=== PATIENT | female | born 1955 | race Caucasian/White ===

== ENCOUNTER 2018-03-18 13:07 | Outpatient (REF) | payer OTHER, SELFPAY ==
[2018-03-18 21:44] LABS: Anion Gap 5.2 mmol/L (3-11); BUN 14 mg/dL (7-18); CO2 30.8 mmol/L (21.0-32.0); CREATININE 0.74 mg/dL (0.55-1.02); Calcium 8.8 mg/dL (8.5-10.1); Chloride 104 mmol/L (98-107); Cholesterol 232 mg/dL (50-200); Glucose 85 mg/dL (70-100); HDL Cholesterol 83 mg/dL (40-60); LDL CHOLESTEROL 127 mg/dL (<100); Potassium 4.4 mmol/L (3.5-5.1); Sodium 140 mmol/L (136-145); Triglyceride 86 mg/dL (30-150)
== END 2018-03-18 13:27 ==
LOC: NCHCN 13:07
PROVIDERS: PCP Nurse Practitioner Family; Visit Provider Nurse Practitioner Family
DX: I10 Essential (primary) hypertension (principal); M54.5 Low back pain; L98.9 Disorder of the skin and subcutaneous tissue, unspecified; K30 Functional dyspepsia; I34.1 Nonrheumatic mitral (valve) prolapse; J45.30 Mild persistent asthma, uncomplicated; F32.9 Major depressive disorder, single episode, unspecified
CPT/HCPCS: 80048; 80061; 83721

== ENCOUNTER 2018-04-05 12:20 | Outpatient (REF) | payer OTHER, SELFPAY ==
[2018-04-05 20:59] LABS: Anion Gap 5.4 mmol/L (3-11); BUN 14 mg/dL (7-18); CO2 28.6 mmol/L (21.0-32.0); CREATININE 0.83 mg/dL (0.55-1.02); Calcium 8.6 mg/dL (8.5-10.1); Chloride 106 mmol/L (98-107); Glucose 97 mg/dL (70-100); Potassium 4.4 mmol/L (3.5-5.1); Sodium 140 mmol/L (136-145)
== END 2018-04-05 12:40 ==
LOC: NCHCN 12:20
PROVIDERS: PCP Nurse Practitioner Family; Visit Provider Nurse Practitioner Family
DX: I10 Essential (primary) hypertension (principal)
CPT/HCPCS: 80048

== ENCOUNTER 2018-04-12 01:28 | Outpatient (CLI) | payer OTHER, SELFPAY ==
--- NOTE | 2018-04-12 15:46 | DI.MAMMO_ITS ---
SYMPTOM/DIAGNOSIS: SCREENING, Z12.31, FAMILY H/O BREAST CA, Z80.3 MAMMOGRAMS: Mammograms were interpreted according to the usual protocol including computer analysis with CAD system, tomosynthesis and C view imaging. Comparison is made with prior examinations. Breast density, Category C. No suspicious masses or microcalcifications are seen. There is no definite evidence of malignancy. IMPRESSION: Negative mammogram. Routine screening is recommended. Category 1. MQSA ASSESSMENT OF FINDINGS: Negative. Category 1. Patient will receive a letter notifying them of these results. Bi-RADS category C. The breasts are heterogeneously dense, which may obscure small masses.
== END 2018-04-12 01:48 ==
PROVIDERS: PCP Nurse Practitioner Family; Visit Provider Nurse Practitioner Family
DX: Z12.31 Encounter for screening mammogram for malignant neoplasm of breast (principal); Z80.3 Family history of malignant neoplasm of breast
CPT/HCPCS: 77063; 77067

== ENCOUNTER 2019-03-03 11:47 | Outpatient (REF) | payer MEDICARE, SELFPAY ==
--- NOTE | 2019-03-03 10:15 | PAPFT_PTH ---
PATIENT: Tanvi Petersen LOC: [facility]#:[id number] AGE/SX: 64/F ROOM: RE03/03/[address]: Sarah Bailon : 1955 BED: DIS: 03/03/2019 SPEC #: [id number] RECD: 03/04/19 12:50 STATUS: MICK MENDEZ #: [id number] JIMENA: 03/03/19 10:[address]: Sarah Bailon DEPT: [facility] Cytology RECD BY: Lorenza Suarez Tissues: 1 - CX/ENDOCX FOR PAP SMEARS Procedures: PAP THIN PREP/UVM Screening HPV DNA PROBE Comments: [id number]
[2019-03-03 21:40] LABS: ALT 13 U/L (14-59); AST 14 U/L (15-37); Albumin 3.5 g/dL (3.4-5.0); Alkaline Phosphatase 90 U/L (46-116); Anion Gap 6.3 mmol/L (3-11); BUN 16 mg/dL (7-18); Bilirubin, Total 0.4 mg/dL (0.2-1.0); CO2 29.7 mmol/L (21.0-32.0); CREATININE 0.75 mg/dL (0.55-1.02); Calcium 8.4 mg/dL (8.5-10.1); Calculated LDL 105 mg/dL; Chloride 107 mmol/L (98-107); Cholesterol 194 mg/dL (<200); Glucose 88 mg/dL (74-106); HDL Cholesterol 69 mg/dL (40-60); Potassium 4.2 mmol/L (3.5-5.1); Sodium 143 mmol/L (136-145); Total Protein 6.4 g/dL (6.4-8.2); Triglyceride 103 mg/dL (<150)
== END 2019-03-03 12:07 ==
LOC: NCHCN 11:47
PROVIDERS: PCP Nurse Practitioner Family; Visit Provider Nurse Practitioner Family
DX: I10 Essential (primary) hypertension (principal); F32.9 Major depressive disorder, single episode, unspecified; J45.30 Mild persistent asthma, uncomplicated; Z12.4 Encounter for screening for malignant neoplasm of cervix; Z01.419 Encounter for gynecological examination (general) (routine) without abnormal findings
CPT/HCPCS: 80053; 80061; 88142; 87624

== ENCOUNTER 2019-04-29 02:05 | Outpatient (CLI) | payer MEDICARE, SELFPAY ==
--- NOTE | 2019-04-29 | DI.DEXA_ITS ---
EXAM: XR DEXA BONE DENSITY W/WO SUNIL CLINICAL HISTORY: POSTMENOPAUSAL Z78.0 COMPARISON: ABD FLAT UPRIGHT PA CHEST from 01/02/2013 FINDINGS: On the lateral view there is a compression deformity of the T12 vertebral body. There is mild loss o f the height of the vertebral body noted. Evaluation of the left hip shows a total T-score is -2.2 and a Z-score of -0.9. This is consistent w ith osteopenia and increased fracture risk. Evaluation of the lumbar spine shows a total T-score of -2.7 and a Z-score of -1.0. This is consiste nt with osteoporosis and high fracture risk. IMPRESSION: Findings of osteoporosis in the lumbar spine.
--- NOTE | 2019-04-29 15:42 | DI.MAMMO_ITS ---
EXAM: MAMMO SCREENING CLINICAL HISTORY: SCREENING Z12.31, FAM HX BREAST CANCER Z80.3 TECHNIQUE: Mammograms were interpreted according to the usual protocol including computer analysis w [employer] CAD system, tomosynthesis and C-view imaging. COMPARISON: 2010 through 2018 FINDINGS: The breasts are composed of heterogeneously dense fibroglandular densities, Breast Density category C . No suspicious masses or suspicious microcalcifications are seen. No skin thickening or abnormal axillary lymph nodes are seen. There has been no significant change from prior exams. IMPRESSION: BIRADS Category 1, negative mammogram. Yearly screening mammography is recommended. BREAST DENSITY: The mammogram demonstrates the patient's breast tissue is dense. Dense breast tissue is very common and is not abnormal but dense breast tissue can make it harder to find cancer on a ma mmogram. Also, dense breast tissue may increase breast cancer risk. This information about the result of the mammogram report was provided to the patient to raise their awareness. Use this report when y ou speak with the patient about their risks for breast cancer, which includes their family history. A t that time, you may recommend additional screening tests (Ultrasound or MRI) as they might be useful based on their risk. A negative radiographic report should not delay biopsy if a dominant or clinically suspicious mass is present. Up to ten percent of cancers are not identified on mammography. A negative report may reinforce clinical impression. Adenosis and dense breasts may obscure an underlying neoplasm. False positive reports average 6 to 10%.
== END 2019-04-29 02:25 ==
PROVIDERS: PCP Nurse Practitioner Family; Visit Provider Nurse Practitioner Family
DX: Z12.31 Encounter for screening mammogram for malignant neoplasm of breast (principal); Z80.3 Family history of malignant neoplasm of breast; M81.0 Age-related osteoporosis without current pathological fracture; Z78.0 Asymptomatic menopausal state
CPT/HCPCS: 77063; 77067; 77080

== ENCOUNTER 2020-06-28 01:17 | Outpatient (CLI) | payer MEDICARE, SELFPAY ==
--- NOTE | 2020-06-28 | DI.MAMMO_ITS ---
Exam(s) MAMMO SCREENING EXAM: MAMMO SCREENING CLINICAL HISTORY: SCREENING,12.31, FAMILY H/O BREAST CA,Z80.3 TECHNIQUE: Bilateral full field digital CC and MLO mammographic images were obtained with 3D tomosyn thesis and utilizing computer aided detection (CAD). COMPARISON: Available for comparison. FINDINGS: Masses/Architectural Distortion: None seen. Microcalcifications: No suspicious pleomorphic-type are seen. Skin Thickening/Nipple Retraction: None. IMPRESSION: 1. No significant interval change with no specific features of malignancy noted. 2. Unless there is more urgent need, screening mammography is recommended, as per [employer] guidelines. BI-RADS Category 1 - Negative Breast Density - Category C - Heterogeneously dense Breast density category C or D implies that the patient has dense breast tissue. Dense breast tissue is very common and is not abnormal but dense breast tissue can make it harder to find cancer on a ma mmogram. Also, dense breast tissue may increase their breast cancer risk. This information about the result of the mammogram report was provided to the patient to raise their awareness. Use this report when you speak with the patient about their risks for breast cancer, which includes their family hist ory. At that time, you may recommend for more screening tests (Ultrasound or MRI) as they might be us eful based on their risk. A negative radiographic report should not delay biopsy if a dominant or clinically suspicious mass is present. Up to ten percent of cancers are not identified on mammography. A negative report may reinforce clinical impression. Adenosis and dense breasts may obscure an underlying neoplasm. False positive reports average 6 to 10%. Patient will receive a letter notifying them of these results.
== END 2020-06-28 01:37 ==
PROVIDERS: PCP Nurse Practitioner Family; Visit Provider Nurse Practitioner Family
DX: Z12.31 Encounter for screening mammogram for malignant neoplasm of breast (principal); Z80.3 Family history of malignant neoplasm of breast
CPT/HCPCS: 77063; 77067

== ENCOUNTER → 2020-12-02 08:59 | Outpatient (BNVA) | payer MEDICARE, SELFPAY | PROVIDERS: PCP Nurse Practitioner Family; Referring Provider Nurse Practitioner Family; Visit Provider Physical Therapy Assistant | DX: Z12.11 Encounter for screening for malignant neoplasm of colon (principal) ==

== ENCOUNTER 2021-06-13 13:39 | Outpatient (REF) | payer MEDICARE, SELFPAY ==
[2021-06-13 16:56] LABS: Anion Gap 6.8 mmol/L (3-11); BUN 13 mg/dL (7-18); CO2 27.2 mmol/L (21.0-32.0); CREATININE 0.8 mg/dL (0.55-1.02); Calcium 8.7 mg/dL (8.5-10.1); Calculated LDL 98 mg/dL (<100); Chloride 108 mmol/L (98-107); Cholesterol 204 mg/dL (<200); Glucose 123 mg/dL (74-106); HDL Cholesterol 77 mg/dL (40-60); Potassium 4.5 mmol/L (3.5-5.1); Sodium 142 mmol/L (136-145); Triglyceride 148 mg/dL (<150)
== END 2021-06-13 13:40 | disposition home or self-care (01) ==
LOC: NCHCN 13:39
PROVIDERS: PCP Nurse Practitioner Family; Visit Provider Nurse Practitioner Family
DX: I10 Essential (primary) hypertension (principal); F32.9 Major depressive disorder, single episode, unspecified; K30 Functional dyspepsia
CPT/HCPCS: 80048; 80061

== ENCOUNTER → 2021-07-26 01:34 | Outpatient (CLI) | payer MEDICARE, SELFPAY ==
--- NOTE | 2021-07-26 12:15 | DI.MAMMO_ITS ---
Exam(s) MAMMO SCREENING EXAM: MAMMO SCREENING CLINICAL HISTORY: SCREENING, Z12.31; FAMILY H/O BREAST CA, Z80.3. TECHNIQUE: Bilateral full field digital CC and MLO mammographic images were obtained with 3D tomosyn thesis and utilizing computer aided detection (CAD). COMPARISON: Prior mammograms were reviewed, the most recent being June 2020. FINDINGS: The fibroglandular tissue pattern is again noted be moderately dense, this somewhat decreasing the se nsitivity mammogram for finding hidden underlying lesions. There are no new significant radiograph findings in the right breast. In the left breast on 3D MLO imaging there is an asymmetric density measuring 6 by 4 millimeters loca dot 5 cm in from the nipple, more evident on prior mammograms. Require spot compression view. There are no malignant-appearing microcalcification groups is region or elsewhere in either breast. There is no significant architectural distortion nor skin thickening-retraction. IMPRESSION: Moderately dense fibroglandular tissue. No radiographic evidence of malignancy in the right breast. Left breast asymmetric density-possible nodule. Spot compression MLO view and ultrasound recommended BI-RADS Category 0 - Assessment Incomplete: Need additional imaging evaluation Breast Density - Category C - Heterogeneously dense Breast density Category C or D implies that the patient has dense breast tissue. Dense breast tissue can make it harder to find cancer on a mammogram. Dense breast tissue is also associated with an incr eased risk of breast cancer. This information about the result of the mammogram report was provided to the patient to raise their awareness. Use this report when you speak with the patient about their risks for breast cancer, which includes their family history. At that time, you may recommend additional screening tests (Ultrasoun d or MRI) as these tests may add significant information. A negative radiographic report should not delay biopsy if a dominant or clinically suspicious mass is present. Up to ten percent of cancers are not identified on mammography. A negative report may reinforce clinical impression. Adenosis and dense breasts may obscure an underlying neoplasm. False positive reports average 6 to 10%. Patient will receive a letter notifying them of these results.
== END ==
PROVIDERS: PCP Nurse Practitioner Family; Visit Provider Nurse Practitioner Family
DX: Z12.31 Encounter for screening mammogram for malignant neoplasm of breast (principal); R92.8 Other abnormal and inconclusive findings on diagnostic imaging of breast; Z80.3 Family history of malignant neoplasm of breast
CPT/HCPCS: 77063; 77067

== ENCOUNTER → 2021-08-01 00:40 | Outpatient (CLI) | payer MEDICARE, SELFPAY ==
--- NOTE | 2021-08-01 09:00 | ETT_ITS ---
APPROVED REPORT Exam: Exercise Treadmill Patient Location: Out-Patient Room/Bed: Stress Nurse: Cyndie Little RN Ordering Provider:PRICILLA PURCELL, Contact Number: [phone] BMI: 21.03 Baseline Rhythm: Sinus Rhythm Comment: inverted t waves in aVL, V2, V3 Indications: exertional shortness of breath Medical History Medical History: osteoporosis, HTN, dyspepsia, MV prolapse, asthma, depression Cardiac Medications: Lisinopril, Advair, Xopenex Allergies: Sulfa Cardiac Risk Factors: + Family history, HTN, former smoker, asthma Previous Cardiac Procedures: None Pretest Chest Pain Characteristics: None Exercise History: Physically active Physical Disabilities: None Lung Sounds: Diminished throughout Heart Sounds: S1/S2 Stress Test Details Test: Exercise stress testing was performed using a Mode protocol. Rest Stress HR Resting HR Supine: 70 bpm Max Heart Rate (APMHR): 153 bpm Resting HR Standin bpm Target HR (85% APMHR): 130 bpm Max HR Achieved: 145 bpm % of APMHR: 94 Recovery HR: 88 bpm HR response to stress: Normal HR response to stress BP Resting BP Supine: 138/77 mmHg Resting BP Standin/84 mmHg Max BP: 208/92 mmHg Recovery BP: 136/76 mmHg BP response to stress: Normal blood pressure response to stress. ECG Resting ECG: Sinus Rhythm Ectopy: None Comment: Inverted T waves in aVL, V2 and V3 Stress ECG: Sinus Tachycardia ST Change: None Arrhythmia: None Recovery ECG: Sinus Rhythm Recovery ST Change: None Recovery Arrhythmia: None Clinical Reason for Termination: Fatigue Stress Symptoms: General Fatigue Exercise duration: 9 min30 sec Highest Stage Reached: Stage 3: 3.4 mph at 14% grade. Exercise capacity: 10.93 METs Angina Score: None Kruse Treadmill Score: 9.7 Rate Pressure Product: [id number] Stress ECG Conclusion 1. Resting electrocardiogram was within normal limits 2. Patient exercised on the Mode protocol and completed a workload of 10.93 METS, limited by fatigue 3. Normal heart rate and blood pressure response to exercise. The patient achieved 94% of predicted heart rate for age 4. There was no electrocardiographic evidence of myocardial ischemia 5. There were no dysrhythmias Kruse Treadmill Score is 9.7 which is Low risk. Stress Test Summary STAGE Time (mins) Speed (mph) Grade (%) HR BP SYMPTOMS METS Supine 70 138/77 Standing 79 124/84 1 3 1.7 10 103 148/86 4.6 2 6 2.5 12 118 166/84 7 3 9 3.4 14 135 182/84 10.2 1 min recovery 121 208/92 3 min recovery 93 162/80 6 min recovery 88 136/76
== END ==
PROVIDERS: PCP Nurse Practitioner Family; Visit Provider Nurse Practitioner Family
DX: R06.09 Other forms of dyspnea (principal)
CPT/HCPCS: 93016; 93018; 93017

== ENCOUNTER → 2021-08-03 01:59 | Outpatient (CLI) | payer MEDICARE, SELFPAY ==
--- NOTE | 2021-08-03 | DI.US_ITS ---
Exam(s) MG MAMMO SCREEN CALL BACK UNI US BREAST LT COMPLETE EXAM: MG MAMMO SCREEN CALL BACK UNI -LEFT AND COMPLETE LEFT BREAST ULTRASOUND CLINICAL HISTORY: F/U ABNL MAMMO, LT ASYMMETRIC DENSITY, POSSIBLE NODULE. TECHNIQUE: Unilateral spot mammographic images obtained with 3D tomosynthesisand utilizing computer aided detection (CAD). . Complete LEFT breast Ultrasound was also performed, including all 4 quadrants, the retroareolar regio n, and the ipsilateral axilla. COMPARISON: Prior mammograms were reviewed. This additional imaging was performed due to findings described on the recent screening mammogram of 07/26/2021. FINDINGS: DIAGNOSTIC LEFT BREAST MAMMOGRAM: Additional mammographic views performed todayrender this area less concerning. COMPLETE LEFT BREAST ULTRASOUND: All 4 quadrants were scanned as well as the retroareolar region and left axilla. Ultrasound performed today reveals no evidence of solid or significant cystic lesions in all 4 quadra nts nor in the retroareolar region Scanning of the left axilla is negative for significant adenopathy. IMPRESSION: 1. No radiographic evidence of malignancy. 2. Negative complete left breast ultrasound. Appropriate follow-up is repeat left breast mammogram in 6 months. The patient was informed of these findings and recommendations prior to leaving the department today. BI-RADS Category 3 - 6 month - Probably Benign Finding: Recommend follow-up mammography in 6 months Breast Density - Category C - Heterogeneously dense Breast density Category C or D implies that the patient has dense breast tissue. Dense breast tissue can make it harder to find cancer on a mammogram. Dense breast tissue is also associated with an incr eased risk of breast cancer. This information about the result of the mammogram report was provided to the patient to raise their awareness. Use this report when you speak with the patient about their risks for breast cancer, which includes their family history. At that time, you may recommend additional screening tests (Ultrasoun d or MRI) as these tests may add significant information. A negative radiographic report should not delay biopsy if a dominant or clinically suspicious mass is present. Up to ten percent of cancers are not identified on mammography. A negative report may reinforce clinical impression. Adenosis and dense breasts may obscure an underlying neoplasm. False positive reports average 6 to 10%. Patient will receive a letter notifying them of these results.
== END ==
PROVIDERS: PCP Nurse Practitioner Family; Visit Provider Nurse Practitioner Family
DX: Z12.31 Encounter for screening mammogram for malignant neoplasm of breast (principal); R92.8 Other abnormal and inconclusive findings on diagnostic imaging of breast
CPT/HCPCS: 76642; 77063; 77067

== ENCOUNTER → 2022-02-03 00:48 | Outpatient (CLI) | payer MEDICARE, SELFPAY ==
--- NOTE | 2022-02-03 14:00 | DI.MAMMO_ITS ---
Exam(s) MAMMO DIAGNOSTIC UNI EXAM: MAMMO DIAGNOSTIC UNI CLINICAL HISTORY: ABNL LT MAMMO, R92.8, 6-MO F/U. TECHNIQUE: Craniocaudal and mediolateral oblique Full Field Digital Mammography views of the left br east with Computer Aided Diagnosis followed by Tomosynthesis. COMPARISON: Comparison is made with prior examinations. FINDINGS: Mammography/Tomosynthesis: Masses/Architectural Distortion: None seen. Microcalcifictions: No suspicious pleomorphic-type are seen. Skin Thickening/Nipple Retraction: None. IMPRESSION: 1. No evidence of malignancy is noted. 2. Unless there is more urgent need, follow-up screening mammography is recommended, as per [employer] guidelines. 3. The findings were discussed with the patient on the date of the examination. BI-RADS Category 1 - Negative Breast Density - Category C - Heterogeneously dense Breast density Category C or D implies that the patient has dense breast tissue. Dense breast tissue can make it harder to find cancer on a mammogram. Dense breast tissue is also associated with an incr eased risk of breast cancer. This information about the result of the mammogram report was provided to the patient to raise their awareness. Use this report when you speak with the patient about their risks for breast cancer, which includes their family history. At that time, you may recommend additional screening tests (Ultrasoun d or MRI) as these tests may add significant information. A negative radiographic report should not delay biopsy if a dominant or clinically suspicious mass is present. Up to ten percent of cancers are not identified on mammography. A negative report may reinforce clinical impression. Adenosis and dense breasts may obscure an underlying neoplasm. False positive reports average 6 to 10%. Patient will receive a letter notifying them of these results.
== END ==
PROVIDERS: PCP Nurse Practitioner Family; Visit Provider Nurse Practitioner Family
DX: R92.8 Other abnormal and inconclusive findings on diagnostic imaging of breast (principal)
CPT/HCPCS: 77061; 77065; G0279

== ENCOUNTER 2022-07-17 17:32 | Outpatient (REF) | payer MEDICARE, SELFPAY ==
[2022-07-17 21:22] LABS: Abs Immature Grans 0.02 10^3/uL (0.0-0.06); Absolute Basophil Count 0.07 10^3/uL (0.0-0.2); Absolute Eosinophil Count 0.58 10^3/uL (0.0-0.7); Absolute Lymphocyte Count 2.06 10^3/uL (1.2-3.4); Absolute Monocyte Count 0.58 10^3/uL (0.1-0.8); Absolute Neutrophil Count 5.55 10^3/uL (1.2-6.7); Basophils % 0.8; Eosinophils % 6.5; HCT 41.6 % (36.0-46.0); HGB 13.4 g/dL (11.2-15.7); Immature Grans % 0.2; Lymphocytes % 23.3; MCH 30.2 pg (27.0-33.0); MCHC 32.2 % (32.0-36.0); MCV 94 fL (80-95); MPV 11.2 fL (8.0-11.0); Monocytes % 6.5; Neutrophils % 62.7; Platelet Count 248 10^3/uL (130-400); RBC 4.43 10^6/uL (3.93-5.22); RDW 12.8 % (11.7-14.6); RDW-SD 44.4 fL; WBC 8.86 10^3/uL (4.4-10.8)
[2022-07-17 21:44] LABS: ALT 18 U/L (14-59); AST 13 U/L (15-37); Albumin 3.5 g/dL (3.4-5.0); Alkaline Phosphatase 89 U/L (46-116); BUN 12 mg/dL (7-18); Bilirubin, Total 0.2 mg/dL (0.2-1.0); CREATININE 0.8 mg/dL (0.55-1.02); Calcium 8.6 mg/dL (8.5-10.1); Chloride 106 mmol/L (98-107); Estimated GFR 80.21 (mL/min/1.73m2); Glucose 75 mg/dL (74-106); Potassium 4.1 mmol/L (3.5-5.1); Sodium 141 mmol/L (136-145); Total Protein 6.7 g/dL (6.4-8.2)
== END 2022-07-17 17:33 | disposition home or self-care (01) ==
LOC: NCHCN 17:32
PROVIDERS: PCP Nurse Practitioner Family; Visit Provider Nurse Practitioner Family
DX: R19.7 Diarrhea, unspecified (principal)
CPT/HCPCS: 80053; 85025

== ENCOUNTER 2022-07-18 15:39 | Outpatient (REF) | payer MEDICARE, SELFPAY | END 2022-07-18 15:40 | disposition home or self-care (01) | LOC: NCHCN 15:39 | PROVIDERS: PCP Nurse Practitioner Family; Visit Provider Nurse Practitioner Family | DX: R19.7 Diarrhea, unspecified (principal) | CPT/HCPCS: 87505; 87177 ==

== ENCOUNTER 2022-07-20 12:45 | Outpatient (REF) | payer MEDICARE, SELFPAY ==
[2022-07-21 11:25] LABS: Campylobacter PCR Negative (Negative); Salmonella PCR Negative (Negative); Shiga Toxin PCR Negative (Negative); Shigella/Enteroinvasive Ecoli Negative (Negative)
== END 2022-07-20 12:46 | disposition home or self-care (01) ==
LOC: NCHCN 12:45
PROVIDERS: PCP Nurse Practitioner Family; Visit Provider Nurse Practitioner Family
DX: R19.7 Diarrhea, unspecified (principal)
CPT/HCPCS: 87505

== ENCOUNTER 2022-08-02 16:15 | Outpatient (REF) | payer MEDICARE, SELFPAY ==
--- NOTE | 2022-08-02 15:45 | SKI_PTH ---
PATIENT: Tanvi Petersen LOC: [facility]#:[id number] AGE/SX: 67/F ROOM: RE08/02/[address]: Arminda Dobbs : 1955 BED: DIS: 08/02/2022 SPEC #: [id number] RECD: 08/03/22 12:42 STATUS: MICK MENDEZ #: [id number] JIMENA: 08/02/22 15:[address]: Arminda Dobbs DEPT: Surgical Specimen RECD BY: Lorenza Suarez ENTERED: 08/03/22 12:43 SP TYPE: OLGA OLIVER DR: Sarah Bailon Tissues: 1 - SKIN BIOPSY(SHAVE/PUNCH) Procedures: SKIN LEVEL 4 Comments: [id number]
== END 2022-08-02 16:16 | disposition home or self-care (01) ==
LOC: LBN 16:15
PROVIDERS: PCP Nurse Practitioner Family; Visit Provider Family Medicine
DX: L82.0 Inflamed seborrheic keratosis (principal)
CPT/HCPCS: 88305

== ENCOUNTER 2023-02-01 14:33 | Outpatient (CLI) | payer MEDICARE, SELFPAY ==
--- NOTE | 2023-02-01 10:45 | DI.RAD_ITS ---
Exam(s) XR HAND RT COMPLETE EXAM: XR HAND RT COMPLETE CLINICAL HISTORY: RIGHT MIDDLE FINGER PAIN. TECHNIQUE: 2D digital imaging was performed. Three views. COMPARISON: No exams were available for comparison FINDINGS: BONES: No acute fracture is present. No bony destructive lesion is seen. JOINTS: No dislocation present. Moderate to severe degenerative changes of the distal interphalange al joint of the index finger. Mild degenerative changes of the remaining interphalangeal joints of t he fingers. Mild degenerative changes 3rd metacarpophalangeal joint. Smoothly marginated bony densi ty seen distal to the ulna appears chronic. SOFT TISSUE: Normal. IMPRESSION: degenerative changes, greatest of the distal interphalangeal joint of the index finger. DATA REPOSITORY: RADIATION DOSE DELIVERED:
== END 2023-02-01 14:34 | disposition home or self-care (01) ==
LOC: DIORS 14:33
PROVIDERS: PCP Nurse Practitioner Family; Referring Provider Nurse Practitioner Family; Visit Provider Student in an Organized Health Care Education/Training Program
DX: M19.041 Primary osteoarthritis, right hand
CPT/HCPCS: 20600; 73130; J1030

== ENCOUNTER 2023-09-21 22:35 | Outpatient (REF) | payer MEDICARE, SELFPAY ==
--- OUTSIDE RECORDS SUMMARY | 2023-09-21 22:36 | XMS_ITS | Encounter Summary ---
Author Organization [facility] Address [address] [place] [address] Care Team Providers Care Leather Case Finisher Name Role Phone Sarah Bailon PAT Primary Care Provider [phone] Encounter Details Date Type Department Care Team (Late st Contact Info) Description 07/20/2022 Lab Requisition [facility] Pathology & Laboratory Medicine - [address] [address] Outr Resulting Lab, Provider Social History Tobacco Use Types Packs/Day Years Used Date Smoking Tobacco: Never Assessed Interpersonal Safety Answer Date Record ed Physically Hurt Never 09/28/2019 Verbally Threaten Not on file 09/28/2019 Sex and Gender Information Value Date Recorded Sex Assigned at Not on file Gender Identity Not on file Sexual Orientation Not on file documented as of this encounter Plan of Treatment Not on file documented as of this encounter Procedures Procedure Name Priority Date/Time Associated Diagnosis Comments FECAL BACTERIAL PATHOGENS BY PCR Routine 07/20/2022 10:00 EDT documented in this encounter Results * FECAL BACTERIAL PATHOGENS BY PCR (07/20/2022 10:00 EDT) Salmonella PCR Negative Negative 07/21/2022 11:20 EDT [facility] Shigella/Enteroin vasive E. coli Negative Negative 07/21/2022 11:20 EDT [facility] HN LAB CAMPYLOBACTER PCR Negative Negative 07/21/2022 11:20 EDT [facility] Shiga Toxin PCR Negative Negative 11:20 EDT [facility] Feces SPECIMEN FROM RECTUM / Unknown 07/20/2022 10:00 EDT 07/20/2022 22:32 EDT Provider Outr Resulting Lab MICROBIOLOGY - GENERAL ORDERABLES [facility] [address] [place] [address] documented in this encounter Visit Diagnoses Not on filedocumented in this encounter Care Teams Leather Case Finisher Relationship Specialty Start Date End Date Sarah Bailon APRN [address] [place] [address] PCP - General 07/13/17 documented as of this encounter
--- OUTSIDE RECORDS SUMMARY | 2023-09-21 22:36 | XMS_ITS | Encounter Summary ---
Author Organization [facility] Address [address] [place] [address] Care Team Providers Care Rug Sample Beveler Name Role Phone Sarah Bailon PAT Primary Care Provider [phone] Encounter Details Date Type Department Care Team (Late st Contact Info) Description 07/19/2022 Lab Requisition [facility] Pathology & Laboratory Medicine - [address] [address] Outr Resulting Lab, Provider Social History Tobacco [...] Procedure Name Priority Date/Time Associated Diagnosis Comments OVA/PARASITE EXAM Routine 07/18/2022 9:00 EDT documented in this encounter Results * OVA/PARASITE EXAM (07/18/2022 9:00 EDT) Parasite No ova and parasites seen. 07/20/2022 14:16 EDT [facility] Feces SPECIMEN FROM RECTUM / Unknown 07/18/2022 9:00 EDT 07/19/2022 17:13 EDT Narrative [facility] - 07/20/2022 14:16 EDT (If Cryptosporidium, Cyclospora, or Microsporidium are suspected, specific tests must be requested.) Single negative specimen does not rule out the possibility of a parasitic infection. Provider Outr Resulting Lab MICROBIOLOGY - GENERAL ORDERABLES [facility] [address] [place] [address] documented in this encounter Visit Diagnoses Not on filedocumented in this encounter Care Teams Rug Sample Beveler Relationship Specialty Start Date End Date Sarah Bailon APRN [address] [place] [address] PCP - General 07/13/17 documented as of this encounter
--- OUTSIDE RECORDS SUMMARY | 2023-09-21 22:36 | XMS_ITS | Encounter Summary ---
Author Organization [facility] Address [address] [place] [id number] Care Team Providers Care Senior Project Accountant Name Role Phone Unknown, Provider Primary Care Provider Encounter Details Date Type Department Care Team (Latest Contact Info) Description 07/06/2017 8:50 EDT - 07/06/2017 23:59 EDT Hospital Encounter [address] [address] Unknown, ProviderMD Discharge Disposition: Home or Self Care Social History Tobacco Use Types Packs/Day Years Used Date Smoking Tobacco: Never Assessed Sex and Gender Information Value Date Recorded Sex Assigned at Not on file Gender Identity Not on file Sexual Orientation Not on file documented as of this encounter Discharge Disposition Disposition Code Departure Means Destination Home or Self Correction documented in this encounter Plan of Treatment Not on file documented as of this encounter Visit Diagnoses Not on filedocumented in this encounter Care Teams Senior Project Accountant Relationship Specialty Start Date End Date Unknown, Provider, PCP - General 02/06/14 07/12/17 documented as of this encounter
--- OUTSIDE RECORDS SUMMARY | 2023-09-21 22:36 | XMS_ITS | Encounter Summary ---
Author Organization [facility] Address [address] [place] [address] Care Team Providers Care Installations Inspector Name Role Phone Sarah Bailon STUDENT ACCOUNTS MANAGER Primary Care Provider [phone] Encounter Details Date Type Department Care Team (Latest Contact Info) Description 03/04/2019 Lab Requisition [facility] Pathology & Laboratory Medicine - [facility] [address] [place] [address] Sarah Bailon, STUDENT ACCOUNTS MANAGER [address] [id number] Encounter for general adult medical examination without abnormal findings; Encounter for screening for malignant neoplasm of cervix; Encounter for gynecological examination (general) (routine) without abnormal findings Social History Tobacco Use Types Packs/Day Years Used Date Smoking Tobacco: Never Assessed Sex and Gender Information Value Date Recorded Sex Assigned at Not on file Gender Identity Not on file Sexual Orientation Not on file documented as of this encounter Plan of Treatment Not on file documented as of this encounter Procedures Procedure Name Priority Date/Time Associated Diagnosis Comments PAP TEST Today 03/03/2019 10:15 EST Encounter for general adult medical examination without abnormal findings Encounter for screening for malignant neoplasm of cervix Encounter for gynecological examination (general) (routine) without abnormal findings HPV DNA DETECTION WITH GENOTYPING, PCR Today 03/03/2019 10:15 EST Encounter for general adult medical examination without abnormal findings Encounter for screening for malignant neoplasm of cervix Encounter for gynecological examination (general) (routine) without abnormal findings documented in this encounter Results * HUMAN PAPILLOMAVIRUS (HPV) DETECTION-HIGH RISK TYPES (03/03/2019 10:15 EST) HPV other High Risk types, PCR Negative Negative 03/10/2019 14:42 [facility] Comment:No E6 or E7 mRNA is detected from HPV types 16,18,31,33,35,39,45,51,52,56,58,59,66, and 68 by sheet manufacturing supervisor mediated amplification. Papanicolaou smear specimen (specimen) CERVIX UTERI STRUCTURE / Unknown 03/03/2019 10:15 EST 03/07/2019 14:53 EST Sarah Bailon APRN MICROBIOLOGY - GE NERAL ORDERABLES [facility] [address] [place] [address] * PAP TEST (03/03/2019 10:15 EST) Specimens A. Cervix and/or Endocervix, , ThinPrep Imaging System with Manual Evaluation 03/10/2019 14:42 [facility] Specimen Adequacy Satisfactory for Evaluation - assessment of transformation zone component not applicable ( e.g. atrophy, vaginal sample, hysterectomy) 03/10/2019 14:42 [facility] General Categorization Negative for intraepithelial lesion or malignancy 03/10/2019 14:42 [facility] Attestation . 03/10/2019 14:42 [facility] at 1442 Clinical History NONE 03/10/19 20 14:42 [facility] HPV The result for the Human Papillomavirus (HPV) Detection-High Risk Types is Negative. No E6 or E7 mRNA is detected from HPV types 16,18,31,33,35,39 ,45,51,52,56,58,5 9,66, and 68 by sheet manufacturing supervisor mediated amplification.Franchesca ting was performed on specimen [id number] and was resulted on 03/10/2019 1431 EST by ANNAMARIE, LAB INSTRUMENT RESULTS IN 03/10/2019 14:42 [facility] Scanned Images 03/10/2019 14:42 [facility] Papanicolaou smear specimen (specimen) CERVIX UTERI STRUCTURE / Unknown 03/03/2019 10:15 EST 03/04/2019 15:38 EST Sarah Bailon APRN PATHOLOGY ORDERAB LES Performing Organization Address City/State/[facility] Co de Phone Number [facility] [address] [place] [address] documented in this encounter Visit Diagnoses Diagnosis Encounter for general adult medical examination without abnormal findings Unspecified general medical examination Encounter for screening for malignant neoplasm of cervix Screening for malignant neoplasm of the cervix Encounter for gynecological examination (general) (routine) without abnormal findings documented in this encounter Care Teams Installations Inspector Relationship Specialty Start Date End Date Sraah Bailon, PAT [address] [place] [address] PCP - General 07/13/17 documented as of this encounter
--- OUTSIDE RECORDS SUMMARY | 2023-09-21 22:36 | XMS_ITS | Clinical Summary ---
Author Organization [facility] Address [address] [place] [address] Care Team Providers Care Heart Nurse Name Role Phone Uvaldo Sarah Ammy STEWART Primary Care Provider [phone] Social History Tobacco Use Types Packs/Day Years Used Date Smoking Tobacco: Never Assessed Interpersonal Safety Answer Date Record ed Physically Hurt Never 09/28/2019 Verbally Threaten Not on file 09/28/2019 Sex and Gender Information Value Date Recorded Sex Assigned at Not on file Gender Identity Not on file Sexual Orientation Not on file Plan of Treatment Health Maintenance Due Date Last Done Comments Hepatitis C Screen 1955 RSV Immunization ( o r 60+ Years) (1 - 1-dose 60+ series) 2014 Fall Risk Screening 2019 COVID-19 Vaccine ( season) 2022 Care Teams Heart Nurse Relationship Specialty Start Date End Date Sarah Bailon APRN [address] [place] [address] PCP - General 07/13/17
--- OUTSIDE RECORDS SUMMARY | 2023-09-21 22:36 | XMS_ITS | Referral Summary ---
Author Organization [facility] Address [address] [place] [address] Care Team Providers Care Fee Clerk Name Role Phone UvaldoSarah Ammy STEWART Primary Care Provider [phone] Social History Tobacco Use Types Packs/Day Years Used Date Smoking Tobacco: Never Assessed Interpersonal Safety Answer Date Record ed Physically Hurt Never 09/28/2019 Verbally Threaten Not on file 09/28/2019 Sex and Gender Information Value Date Recorded Sex Assigned at Not on file Gender Identity Not on file Sexual Orientation Not on file Plan of Treatment Not on file Care Teams Fee Clerk Relationship Specialty Start Date End Date Sarah Bailon APRN [address] [place] [address] PCP - General 07/13/17
--- OUTSIDE RECORDS SUMMARY | 2023-09-21 22:36 | XMS_ITS | Encounter Summary ---
Author Organization [facility] Address [address] [place] [address] Care Team Providers Care Drywall Sprayer Name Role Phone Sarah Bailon PAT Primary Care Provider [phone] Encounter Details Date Type Department Care Team (Late st Contact Info) Description 08/03/2022 Lab Requisition [facility] Pathology & Laboratory Medicine - [address] [address] Arminda Dobbs MD [address] [place] [phone] Neoplasm of uncertain behavior of skin Social History Tobacco Use Types Packs/Day Years [...] Procedure Name Priority Date/Time Associated Diagnosis Comments SURGICAL PATHOLOGY Today 08/02/2022 15 :45 EDT Neoplasm of uncertain behavior of skin documented in this encounter Results * SURGICAL PATHOLOGY (08/02/2022 15:45 EDT) Note to Patient The following pathology results have been interpreted by your pathologist and may be available to you before your health provider has had the opportunity to review them. Please allow time for your provider to receive these results and explore management options, if applicable. 08/04/2022 10:05 EDT [facility] Final Diagnosis A. SKIN OF FOREARM, RIGHT, SHAVE BIOPSY: - Benign lichenoid keratosis 08/04/2022 10:05 [facility] Attestation By the signature below, the attending physician certifies that they have 1) personally conducted a gross and/or microscopic examination of the described specimen(s), and/or personally interpreted the results of laboratory testing of the described specimen(s), and 2) personally rendered or confirmed the above diagnosis. 08/04/2022 10:05 [facility] at 1005 Clinical History [place] raised bleeding lesion; clinical diagnosis code: D48.9 08/04/2022 10:05 [facility] Gross Description A. Received in formalin labelled with proper patient identification (initials L, R) and R forearm is a shave biopsy of a glaser pink plaque measuring 1.2 x 0.8 x 0.2 cm. Near 1 edge of the specimen is a linear white lesion measuring 0.5 x 0.2 cm. Inked, serially sectioned and submitted entirely in A1-A2. JOSSY JIMENEZ(ASCP) 08/03/2022 17:55 08/04/2022 10:05 [facility] Performing Lab [facility] 08/04/2022 10:05 [facility] Scanned Images 08/04/2022 10:05 [facility] Tissue TISSUE SPECIMEN FROM SKIN / Unknown 08/02/2022 15:45 EDT 08/03/2022 17:20 EDT Arminda Dobbs MD PATHOLOGY ORDERABLES [facility] [address] [place] [address] documented in this encounter Visit Diagnoses Diagnosis Neoplasm of uncertain behavior of skin documented in this encounter Care Teams Drywall Sprayer Relationship Specialty Start Date End Date Sarah Bailon APRN [address] [place] [address] PCP - General 5/18/18 documented as of this encounter
--- OUTSIDE RECORDS SUMMARY | 2023-09-21 22:36 | XMS_ITS | Encounter Summary ---
Author Organization [facility] Address [address] [place] [address] Care Team Providers Care Hotel And Dining Room Cashier Name Role Phone Unknown, Provider Primary Care Provider [phone] Encounter Details Date Type Department Care Team ([facility] st Contact Info) Description 07/06/2017 Results Only [facility] [phone] Mary Jo Maldonado MD [address] [address] Social History Tobacco Use Types Packs/Day Years Used Date Smoking Tobacco: Never Assessed Sex and Gender Information Value Date Recorded Sex Assigned at Not on file Gender Identity Not on file Sexual Orientation Not on file documented as of this encounter Plan of Treatment Not on file documented as of this encounter Procedures Procedure Name Priority Date/Time Associated Diagnosis Comments SURGICAL PATHOLOGY Routine 07/06/2017 22 :29 EDT documented in this encounter Results * SURGICAL PATHOLOGY (07/06/2017 22:29 EDT) Pathology Report: SURGICAL PATHOLOGY REPORT Reports generated via electronic interface contain original data; however they are lacking the format of the original report. Caution should be taken when reading/interpret ing unformatted reports. Name: ? VALENTENOAHLIZZAMEENA MCLAUGHLIN ? Accession #: ? [id number] ? : ? 1955 (Age: 62) ??F ? Collect Date: ? 07/06/2017 ? Location: ? [facility] ? Receive Date: ? 07/10/2017 ? Provider: MARY JO MALDONADO MD Copy to: PRICILLA PURCELL USED [employer]TER ? Final Pathologic Diagnosis: SOFT TISSUE OF PERINEUM, CYST, EXCISION: - Follicular cyst, infundibular type, with inspissated debris and bacterial cocci. Document reviewed and electronically signed by: ZACHARY ELLIS MD Report ??Date: 07/12/2017 16:00 By the signature above, the attending physician certifies that he/she has personally conducted a gross and/or microscopic examination of the described specimens and rendered or confirmed the above diagnosis. Specimen(s) Received: Perineum Clinical History: Lump perineum; sebaceous cyst material or inclusion cyst Gross Description: ? Received in formalin labelled with proper patient identification (initials L, R) and cyst perineum is an aggregate of glaser-shahid to white soft tissue (0.7 x 0.6 x 0.5 cm). Submitted in toto in 1. JOSSY Davalos (ASC) 07/11/2017 9:23 AM End of Report [facility] 07/06/2017 22:2 9 EDT 07/10/2017 22:29 EDT Mary Jo Maldonado MD PATHOLOGY ORDERABLES [facility] [address] [place] [address] documented in this encounter Visit Diagnoses Not on filedocumented in this encounter Care Teams Hotel And Dining Room Cashier Relationship Specialty Start Date End Date Unknown, Provider, PCP - General 02/06/14 07/12/17 documented as of this encounter
--- OUTSIDE RECORDS SUMMARY | 2023-09-21 22:37 | XMS_ITS | Encounter Summary ---
[place] [address] Care Team Providers Care Composition Mixer Name Role Phone Sarah Bailon APRN Primary Care Provider [phone] Encounter Details Date Type Department Care Team (Late st Contact Info) Description 03/01/2022 Ancillary Procedure [place] [address] Sarah Bailon APRN [address] [place] [address] Social History Tobacco Use Types Packs/Day Years Used Date Smoking Tobacco: Former Smokeless Tobacco: Never Sex and Gender Information Value Date Recorded Sex Assigned at Not on file Gender Identity Not on file Sexual Orientation Not on file documented as of this encounter Plan of Treatment Not on file documented as of this encounter Procedures Procedure Name Priority Date/Time Associated Diagnosis Comments FILM LIBRARY STORAGE ONLY MR HEAD Routine 03/01/2022 12:00 AM EST documented in this encounter Results * Film Library- Storage Only MR Head (03/01/2022 12:00 AM EST) Narrative [facility] - 04/06/2022 8:53 PM EST This exam is auto-finalizing. It's purpose is for storage only. Sarah Bailon APRN IMG FILM LIBRARY ORDERABLES [facility] [place] documented in this encounter Visit Diagnoses Not on filedocumented in this encounter Care Teams Composition Mixer Relationship Specialty Start Date End Date Sarah Bailon APRN [address] [place] [address] PCP - General Family Medicine 06/16/16 documented as of this encounter
--- OUTSIDE RECORDS SUMMARY | 2023-09-21 22:37 | XMS_ITS | Clinical Summary ---
Author Organization [facility] Address [facility] [place] [address] Care Team Providers Care Economic Adviser Name Role Phone UvaldoSis sullivanhryn Ammy STEWART Primary Care Provider [phone] Allergies Active Allergy Reactions Criticality Noted Date Comments Hymenoptera Allergenic Extract Hives High 03/13 Cat/Feline Products Shortness Of Breath High 014 Sulfa (Sulfonamide Antibiotics) Rash 02/26 Medications Medication Sig Dispensed Refills Start Date End Date Status Desvenlafaxine (PRISTIQ) 50 mg Tablet SRIndications:major depressive disorder Take by mouth. Indications: Major Depressive Disorder Active fluticasone-salmeter ol (ADVAIR) 100-50 mcg/dose diskus inhaler Inhale 1 puff into the lungs every 12 hours. Active albuterol (PROVENTIL HFA;VENTOLIN HFA) 90 mcg/actuation inhaler Inhale 2 puffs into the lungs every 4 hours as needed. Use with spacer Active epiNEPHrine (EPIPEN) 0.3 mg/0.3 mL (1:1,000) injectionIndications :Healthcare maintenance,Foreign travel Inject 0.3 mLs into the muscle once as needed. 2 each 1 03/13/2013 Active lisinopril (PRINIVIL;ZESTRIL) 10 mg Tablet TAKE 1 TABLET BY MOUTH ONCE DAILY. 02/08/2019 Active Active Problems No known active problems Immunizations Name Administration Dates Next Due Influenza Trivalent w/Preservative 03/13/2013 Typhoid, VICP 03/13/2013 Family History Medical History Relation Comments Glaucoma Father Macular Degeneration Father Relation Status Comments Father Social History Tobacco Use Types Packs/Day Years Used Date Smoking Tobacco: Former Smokeless Tobacco: Never Sex and Gender Information Value Date Recorded Sex Assigned at Not on file Gender Identity Not on file Sexual Orientation Not on file Plan of Treatment Health Maintenance Due Date Last Done Comments CT Colonography 1955 Colonoscopy 1955 Colorectal Cancer Screening 1955 FIT DNA 1955 FIT 1955 Sigmoidoscopy (10 year) with FIT yearly 1955 Sigmoidoscopy 1955 Hepatitis C Screening 01/02/1972 Tdap adult 1973 Tetanus vaccine 1973 Breast Cancer Share Decision Needed 1994 Breast Cancer screening 1994 Zoster vaccine (1 of 2) 01/02/2004 Advance Directive 2009 Bone Density Scan 2019 Pneumoccocal Vaccine: 65+ (1 of 1 - PCV) 2019 Covid-19 Vaccine (1 - 2022- season) 2022 Influenza (Flu) vaccine (1 o f 1 - Influenza standard series) 10/28/2023 03/13/2013 Care Teams Economic Adviser Relationship Specialty Start Date End Date Sarah Bailon APRN [address] [place] [address] PCP - General Family Medicine 06/16/16
--- OUTSIDE RECORDS SUMMARY | 2023-09-21 22:37 | XMS_ITS | Encounter Summary ---
Author Organization [facility] [place] [address] Care Team Providers Care Surfacing Machine Operator Name Role Phone None Primary Care Provider Unavailabl e Encounter Details Date Type Department Care Team (Late st Contact Info) Description 03/13/2013 2:30 PM EST Office Visit Infectious Disease at [facility] [place] [phone] Tamica Pierson RN Need for prophylactic vaccination against Hemophilus influenza type B (Hib); Healthcare maintenance; Need for prophylactic vaccination with typhoid-paratyphoid (TAB) vaccine; Foreign travel Discharge Disposition: Home Social History Tobacco Use Types Packs/Day Years Used Date Smoking Tobacco: Never Assessed Sex and Gender Information Value Date Recorded Sex Assigned at Not on file Gender Identity Not on file Sexual Orientation Not on file documented as of this encounter Patient Instructions * Patient Instructions* Tamica Pierson RN - 03/13/2013 5:16 PM EST Today, you received the following vaccines: [x] Flu shot (recommended annually) [] TDaP (good for 10 years) [] Td (good for 10 years) [] Hepatitis A* (first dose good for 6 months, need a booster anytime after 6 months) [] Hepatitis B* (series is a total of 3) [] IPV (polio - this is your adult lifetime booster) [] Meningococcal meningitis [] Pneumococcal [] Rabies* (series is a total of 3, Day 1, Day 7, and Day 21) [] Yellow fever (good for 10 yrs. Keep your yellow card w/ you when traveling as proof) [] [place] Encephalitis* (series of 2, Day 1 and Day 28) [x] Typhoid IM (good for 2-3 years) [] Typhoid oral (Take 1 capsule every other day on am empty stomach x 4 doses. Keep in fridge. Goodfor 5 years) *Please remember to schedule your follow-up boosters, if indicated. Call us at [phone] to schedule an appointment for these vaccines. Today, you were also prescribed a medication for malaria prevention. No malaria prophylaxis indicated for this trip [] Malarone - Start taking 1 day prior to travel to malaria risk area. Take daily while there and for 7 more additional days thereafter. Take this medication with food. [] Mefloquine or Chloroquine - Start 1 week prior to travel to a malaria risk area. Take once weekly while there and for 4 additional weeks thereafter. [] Doxycycline - Start 1 day prior to travel to malaria risk area. Take daily while there and for 28 additional days thereafter. Additional Recommendations/Instructions: We recommend a tuberculin skin test (TST) to screen for tuberculosis exposure about 2 - 3 months after your trip. Call us at [phone] to book this upon your return. Have a great trip! documented in this encounter Progress Notes * Anjel Marsh MD - 03/19/2013 4:34 PM EST I agree with the recommendations of Tamica Pierson after review of her note. * Tamica Pierson RN - 03/13/2013 2:50 PM EST Adult Travel Clinic Reason for Visit: Tanvi Petersen is a 58 y.o. female who comes to travel clinic today for pre-travel evaluation, vaccination and traveler's health education. Trip Details: Destination countries (list from first to last):[place] days; [facility]; [place] TRAINING ENGINE[employer] and [place] TRA[employer] for total of 2 wks Departure date: 05/01/2013 Length of stay: 3 wks Purpose of travel: visit nephew in [facility]; biking/ trekking Urban or rural environment - both Accommodations; guesthouses, hostels, one overnight family stay while trekking; Inns - discussed use of mosquito net when in [facility] and [facility] TRAINING ENGINEER Medical History: Medical problems: healthy Immunosuppression: No recent steroid use; chemotherapy or other immunosuppresion. History of adverse reactions to vaccines in past: none History of latex allergy: None. Not or . Medications: Current Outpatient Prescriptions Medication Sig Dispense Refill ??? Current outpatient prescriptions:Desvenlafaxine (PRISTIQ) 50 mg Tablet SR, Take by mouth. Indications: Major Depressive Disorder, Disp: , Rfl: ; fluticasone-salmeterol (ADVAIR) 100-50 mcg/dose diskus inhaler, Inhale 1 puff into the lungs every 12 hours., Disp: , Rfl: ; albuterol (PROVENTIL HFA;VENTOLIN HFA) 90 mcg/actuation inhaler, Inhale 2 puffs into the lungs every 4 hours as needed. Use with spacer, Disp: , Rfl: ? Allergies: Review of patient's allergies indicates no known allergies. Patient advised to carry all medications in carry on luggage. Travel Health and Safety Issues: A discussion of travel health hazards and safety issues was done, including the following topics: Traffic-accidents Crime Alcohol related issues Sun exposure/heat illness Schistosomiasis and other fresh water exposures Rabies HIV infections, Hepatitis TB Health insurance coverage/[employer] Other: embassy information Discussed food and water precautions and patient handout provided. The following strategies were recommended for the management of traveler's diarrhea according to severity: For treatment of mild diarrhea: hydration and over the counter antidiarrheal recommended. For treatment of diarrhea accompanied by fever or systemic illness: hydration and empiric treatmentwith antibiotic recommended. A prescription for cipro, twice daily for three days sent to [facility] in [facility] . For severe or bloody diarrhea, or diarrhea accompanied by vomiting: patient advised to seek medicaltreatment. Vector-borne Disease Prevention Discussed insect bite prevention to reduce risk of malaria, dengue and other insect borne illnesses. Handout given. Malaria Risk: (x) Malaria risk in country(ies)visited, but not high enough risk on this itinerary to warrant chemoprophylaxis. Will need to use good insect precautions when in [place] Altitude: (x) [place] [id number] (x) Discussed altitude sickness and prevention. (x) Prescription for Acetazolamide was sent to [facility] in [facility] Follow-up Recommendations: A recommendation was made that the patient have a tst placed about 2 months after returning from this trip. The patient may either call the travel clinic or get this done through their primary physician locums urgent care. Patient advised to call travel clinic if they return from trip with any illness. Time spent in travel counselin min with sister Note written by TAMICA PIERSON RN Travel Clinic Immunization History and Orders Immunizations Last dose Give today Give at future date Tetanus/diphtheria (0.5 ml IM) Tdap 08/2011 MMR (0.5 ml IM) dz as child Polio (0.5 ml SC) Primary series Hepatitis A (Adult-1.0 ml IM) (Pedi-0.5 ml IM) 1. 2. 1. 2. Immune serum globulin (specify route/dose) Hepatitis B (adult-1 ml IM X 3) (pedi-0.5 ml IM X 3) 1. 2. 3. 1. 2. 3. Twinrix (Hep A/B) (1.0 ml IM) 12/2012 1. 2. 3. 1. 2.schedule with primary care 3. Typhoid (specify route/dose) 03/13/13 IM Yellow fever (0.5 ml IM) Meningococcal (0.5 ml IM) Rabies (specify type/dose) 1. Discussed actions to take if exposed. Advised medical evacuation insurance 2. 3. 1. 2. 3. [place] Encephalitis 1.will use good insect precautions when biking in [place] 2. 3. 1. 2. 3. Influenza (0.5 ml IM) 03/13/13 Pneumovax (0.5 ml IM) x2 Other: PPD (Mantoux) (0.1 ml ID) Vaccine information sheets given. documented in this encounter Plan of Treatment Not on file documented as of this encounter Visit Diagnoses Diagnosis Need for prophylactic vaccination against Hemophilus influenza type B (Hib) Healthcare maintenance Routine general medical examination at a health care facility Need for prophylactic vaccination with typhoid-paratyphoid (TAB) vaccine Need for prophylactic vaccination with typhoid-paratyphoid alone (TAB) Foreign travel Other specified conditions influencing health status documented in this encounter Care Teams Surfacing Machine Operator Relationship Specialty Start Date End Date None None PCP - General 03/13/13 06/15/16 documented as of this encounter
--- OUTSIDE RECORDS SUMMARY | 2023-09-21 22:37 | XMS_ITS | Encounter Summary ---
Author Organization [facility] Address [address] [place] [address] Care Team Providers Care Rn Clinical Resource Name Role Phone Unknown, Provider Primary Care Provider [phone] Encounter Details Date Type Department Care Team (Late st Contact Info) Description 02/05/[address] [facility] [phone] Pricilla Purcell, RESEARCH LABORATORY MANAGER [address] [facility] [address] [place] [phone] Social History Tobacco Use Types Packs/Day Years Used Date Smoking Tobacco: Never Assessed Sex and Gender Information Value Date Recorded Sex Assigned at Not on file Gender Identity Not on file Sexual Orientation Not on file documented as of this encounter Plan of Treatment Not on file documented as of this encounter Procedures Procedure Name Priority Date/Time Associated Diagnosis Comments PAP TEST- RESULT ONLY Routine 02/05/2014 0:00 EST documented in this encounter Results * PAP TEST- RESULT ONLY (02/05/2014 0:00 EST) Pathology Report: CYTOPATHOLOGY REPORT Reports generated via electronic interface contain original data; however they are lacking the format of the original report. Caution should be taken when reading/interpreti ng unformatted reports. Name: ? AMEENA BURKS ? Accession #: ? [id number] ? : ? 1955 (Age: 59) ??F ?Collect Date: ? 02/05/2014 ? Location: ? [facility] ? Receive Date: ? 02/06/2014 ? Provider: PRICILLA PURCELL RESEARCH LABORATORY MANAGER Copy to: ? Final Report SPECIMEN ADEQUACY ? Satisfactory for Evaluation - assessment of transformation zone component not applicable ( e.g. atrophy, vaginal sample, hysterectomy) - scant squamous epithelial component - obscuring contamination, possibly lubricant GENERAL CATEGORIZATION ? Negative for Intraepithelial Lesion or Malignancy ?? Menstrual/Pregnanc y Status: ??Post Menopausal Specimen/Source: ??Pap Test, Source Not Provided, 3D Forms Imaging System with manual evaluation Document reviewed and electronically signed by: ? BERNARDO Davenport(ASCP) ? Report ??Date: 02/12/2014 09:09 HPV with Pap Test ? Date Ordered: ? 02/12/2014 ? Status: ?? Signed Out ?Date Complete: ? 02/16/2014 ? By: ??System Interface ? Date Reported: ? 02/16/2014 ? Interpretation RESULT: Negative for HPV. No E6 or E7 mRNA is detected from HPV types 16,18,31,33,35, 39,45,51,52,56,58, 59,66, and 68 by spinning operator mediated amplification. Test not validated for this type of specimen or collection method. The sensitivity and specificity of the test in this situation are unknown. The results should be interpreted with caution. Comments Document reviewed and electronically signed by: ? System Interface ? Report date: 02/16/2014 By the signature above, the attending physician certifies that he/she has personally conducted a gross and/or microscopic examination of the described specimens and rendered or confirmed the above diagnosis. End of Report [facility] 02/05/2014 02/06/2014 Pricilla Purcell APRN PATHOLOGY ORDERAB LES Performing Organization Address City/State/[facility] Co de Phone Number [facility] [address] [place] [address] documented in this encounter Visit Diagnoses Not on filedocumented in this encounter Care Teams Rn Clinical Resource Relationship Specialty Start Date End Date Unknown, Provider, PCP - General 02/06/14 07/12/17 documented as of this encounter
--- OUTSIDE RECORDS SUMMARY | 2023-09-21 22:37 | XMS_ITS | Encounter Summary ---
Author Organization [facility] Address [facility] [place] [address] Care Team Providers Care Electrical Plumbing Supervisor Name Role Phone Sarah Bailon APRN Primary Care Provider [phone] Reason for Visit * Reason Comments Vitreous Hemorrhage Referred by Dr Johana yeung for evaluation and treatment of vitreous hemorrhage OS with possible retinal tear OS. Saw Dr Sullivan 06/14/16 with 2 week onset on large floater OS; no flashing lights, no curtains or veils. No eye drops. Cataracts OU. * Consultation (Urgent) - Specialty Diagnoses / Procedures Referred By Cierra yeung Referred To Contact Ophthalmology Diagnoses vitreous heme w/poss retinal tear os, floaters 2 wks, flashes, veil curtain Procedures consult, test & treat Teagan Sullivan MD [address] [place] [address] [facility] Op[facility]mology [address] [place] [phone] Referral ID Status Reason Start Date Expiration Date V isits Requested Visits Authorized [id number] 06/14/2016 06/14/2017 1 1 Encounter Details Date Type Department Care Team (Late st Contact Info) Description 06/16/2016 1:45 PM EDT Office [place] [address] Dom Garrett MD [facility] [address] Posterior vitreous detachment of left eye; Vitreous hemorrhage, left Social History Tobacco Use Types Packs/Day Years Used Date Smoking Tobacco: Former Sex and Gender Information Value Date Recorded Sex Assigned at Not on file Gender Identity Not on file Sexual Orientation Not on file documented as of this encounter Progress Notes * Dom Garrett MD - 06/16/2016 1:45 PM EDT ASSESSMENT: 1. Posterior vitreous detachment of left eye 2. Vitreous hemorrhage, left Referred by Dr. Sullivan for eval of PVD ? Occult tear Exam/Findings Today 06/16/16: No obvious retinal break OS. Vision and VH improving per patient. PLAN: Observe with RD precautions Limit activity for 1 more week, then okay to resume horseback riding Follow up with for repeat dilated exam of the left eye in 4-6 weeks. Retina PRN for now The Ophthalmology scribe for this encounter is JAY Clayton. I performed and personally participated in the waterman and critical portions of the service. I have reviewed/updated the documentation, and confirm that all of the information is accurate as described. Dom Garrett MD documented in this encounter Plan of Treatment Not on file documented as of this encounter Visit Diagnoses Diagnosis Posterior vitreous detachment of left eye Vitreous degeneration Vitreous hemorrhage, left documented in this encounter Care Teams Electrical Plumbing Supervisor Relationship Specialty Start Date End Date Sarah Bailon APRN [address] [place] [address] PCP - General Family Medicine 06/16/16 documented as of this encounter
--- OUTSIDE RECORDS SUMMARY | 2023-09-21 22:37 | XMS_ITS | Encounter Summary ---
Author Organization [facility] Address [facility] [place] [address] Care Team Providers Care Pickers Material Handlers Name Role Phone Sarah Bailon APRN Primary Care Provider [phone] Reason for Visit * Reason Comments Skin Check * Consultation (Routine) - Closed Specialty Diagnoses / Procedures Referred By Cierra yeung Referred To Contact Dermatology Diagnoses SKIN LESIONS Sarah Bailon APRN [address] [place] [address] [facility] [address] [place] [address] Referral ID Status Reason Start Date Expiration Date V isits Requested Visits Authorized [id number] Closed Consult, Test & Treat [facility] PCP Updated and/or Approved 12/05/2018 12/05/2019 1 1 Encounter Details Date Type Department Care Team (Late Contact Info) Description 02/28/2019 11:30 AM EST Office Visit Dermatology at [facility] [address] [place] [phone] Arminda Chowdhury MD [facility] [address] [facility] [address] Dermatofibroma; Awad angioma; Lentigines; Seborrheic keratosis; Intradermal nevus Social History Tobacco Use Types Packs/Day Years Used Date Smoking Tobacco: Former Smokeless Tobacco: Never Sex and Gender Information Value Date Recorded Sex Assigned at Not on file Gender Identity Not on file Sexual Orientation Not on file documented as of this encounter Progress Notes * Arminda Chowdhury MD - 02/28/2019 11:30 AM EST DERMATOLOGY OUTPATIENT CLINIC NOTE Date of service: 02/28/2019 Tanvi Petersen : 1955 Provider: Arminda Chowdhury MD PROBLEM: Full skin screening SKIN HISTORY: none HPI Tanvi Petersen is a 64 y.o. female. New pt here for a full skin screening. She reports she has a lump near the right inner knee. She noticed it about 1 year. It has not grown in size and it is very tiny in size. She has another one on the left inner knee, but the PCP told her it was not the same as the one on the right knee. She has all kinds of skin growths and wants evaluation. - 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 Bee Sting [Hymenoptera Allergenic Extract] Hives ??? Cat/Feline Products Shortness Of Breath ??? Sulfa (Sulfonamide Antibiotics) Rash CURRENT MEDICATIONS: Current Outpatient Medications Medication Sig Dispense Refill ??? Desvenlafaxine (PRISTIQ) 50 mg Tablet SR Take by mouth. Indications: Major Depressive Disorder ??? fluticasone-salmeterol (ADVAIR) 100-50 mcg/dose diskus inhaler Inhale 1 puff into the lungs every 12 hours. ??? albuterol (PROVENTIL HFA;VENTOLIN HFA) 90 mcg/actuation inhaler Inhale 2 puffs into the lungs every 4 hours as needed. Use with spacer ??? epiNEPHrine (EPIPEN) 0.3 mg/0.3 mL (1:1,000) injection Inject 0.3 mLs into the muscle once as needed. 2 each 1 No current facility-administered medications for this visit. PROBLEM LIST: There is no problem list on file for this patient. ROS General: feeling well. Oriented X 3. Skin: denies other skin complaints EXAM General: NAD, pleasant, cooperative Skin: Patient was asked to undress to the level of her comfort. Verbalized that the provider's preference is for the patient to remove all clothing and that the provider will not examine areas patient elects to keep covered. A total body skin exam except for the genitalia was performed. This includes examination of the skin of the face, ears, neck, chest, axillae, left and right upper and lower extremities, hands, feet, abdomen, back, and buttocks. The genitalia, perineum, and perianal areas were not examined. Significant skin findings: -Right medial knee, left medial calf: pink, firm papule(s). -Trunk: red dome-shaped papules. -Photo distributed areas: hyperpigmented macules. -Trunk and extremities: waxy, brown stuck-on papules. -Right chin: pink, fleshy papule. ASSESSMENT/PLAN Dermatofibromas - Discussed benign nature of lesion and provided reassurance. No treatment necessary. - Advised to try to avoid shaving lesions. - Explained that if it were to become irritated, punch removal is an option but would be trading the papule for a scar. Awad Angiomas - Discussed benign nature of lesions and provided reassurance. No treatment necessary at this time. Lentigines - Discussed benign nature of lesions and provided reassurance. No treatment necessary at this time. - Discussed nature of sun-induced photo-aging and skin cancers. Advised sun avoidance, protective clothing, and use of SPF 30+ broad-spectrum sunscreens. - Instructed patient to observe closely for skin damage/changes and call if such occur. Seborrheic Keratoses - Explained that these are hereditary and adult-acquired. Reassured patient of benign nature. No treatment necessary. Intradermal Nevus - Discussed benign nature of lesion and provided reassurance. No treatment necessary at this time. - Explained option of removal (shave removal or excision) for benign nevi. Patient advised that shewould be trading the nevi for a scar and that the removal may not be covered by insurance and couldpotentially be an out of pocket expense. RTC - 2 years for a full skin exam; sooner if needed. Reminder placed in system to schedule. Instructed patient to call with questions or concerns. Note initiated and routed to physician for review and change by: RICARDO VALADEZ LPN I, Faiza Bailey, Clinical Scribe have performed the documentation for this encounter in the presence of and acting as a scribe for Arminda Chowdhury MD. I, Dr. Arminda Chowdhury, performed the visit service though my nurse assisted me in scribing the note. I reviewed and edited this note above, a scribed service performed by my nurse. On closure of this note I agree with the accuracy of the documentation. Arminda Chowdhury MD Section of Dermatology [facility] documented in this encounter Plan of Treatment Not on file documented as of this encounter Visit Diagnoses Diagnosis Dermatofibroma Benign neoplasm of skin, site unspecified Awad angioma Nevus, non-neoplastic Lentigines Other dyschromia Seborrheic keratosis Other seborrheic keratosis Intradermal nevus Benign neoplasm of skin, site unspecified documented in this encounter Care Teams Pickers Material Handlers Relationship Specialty Start Date End Date Sarah Bailon, PAT [address] [place] [address] PCP - General Family Medicine 06/16/16 documented as of this encounter
[2023-09-23 15:45] LABS: HSV 1 DNA Result Negative (Negative); HSV 2 DNA Result Negative (Negative); Varicella Zoster DNA Result Negative ((See Note))
== END 2023-09-21 22:36 | disposition home or self-care (01) ==
LOC: LBN 22:35
PROVIDERS: PCP Nurse Practitioner Family; Visit Provider Physician Assistant Medical
DX: L28.2 Other prurigo (principal); R21 Rash and other nonspecific skin eruption
CPT/HCPCS: 87529; 87798

== ENCOUNTER 2023-11-27 18:41 | Outpatient (REF) | payer MEDICARE, SELFPAY ==
--- OUTSIDE RECORDS SUMMARY | 2023-11-27 18:50 | XMS_ITS | Encounter Summary ---
Author Organization [facility] Address [address] [place] [address] Care Team Providers Care Stitch Bonding Machine Tender Helper Name Role Phone Unknown, Provider Primary Care Provider [phone] Encounter Details Date Type Department Care Team (Late st Contact Info) Description 02/05/2014 Results Only [facility] [phone] Pricilla Purcell, BALLOON ARTIST [address] [facility] [address] [place] [phone] Social History Tobacco Use Types Packs/Day Years [...] ? AMEENA BURKS ? Accession #: ? [id number] ? : ? 1955 (Age: 59) ??F ?Collect Date: ? 02/05/2014 ? Location: ? [facility] ? Receive Date: ? 02/06/2014 ? Provider: PRICILLA PURCELL BALLOON ARTIST Copy to: ? Final Report SPECIMEN ADEQUACY ? Satisfactory for Evaluation - assessment of transformation zone component not applicable ( e.g. atrophy, vaginal sample, hysterectomy) - scant squamous epithelial component - obscuring contamination, possibly lubricant GENERAL CATEGORIZATION ? Negative for Intraepithelial Lesion or Malignancy ?? Menstrual/Pregnanc y Status: ??Post Menopausal Specimen/Source: ??Pap Test, Source Not Provided, [employer] Imaging System with manual evaluation Document reviewed and electronically signed by: ? BRENARDO Davenport(ASCP) ? Report ??Date: 02/12/2014 09:09 HPV with Pap Test ? Date Ordered: ? 02/12/2014 ? Status: ?? Signed Out ?Date Complete: ? 02/16/2014 ? By: ??System Interface ? Date Reported: ? 02/16/2014 ? Interpretation RESULT: Negative for HPV. No E6 or E7 mRNA is detected from HPV types 16,18,31,33,35, 39,45,51,52,56,58, 59,66, and 68 by head char filter tank tender mediated amplification. Test not validated for this [...] confirmed the above diagnosis. End of Report [facility] 02/05/2014 02/06/2014 Pricilla Purcell APRN PATHOLOGY ORDERAB LES Performing Organization Address City/State/[facility] Co de Phone Number [facility] [address] [place] [address] documented in this encounter Visit Diagnoses Not on filedocumented in this encounter Care Teams Stitch Bonding Machine Tender Helper Relationship Specialty Start Date End Date Unknown, Provider, PCP - General 02/06/14 07/12/17 documented as of this encounter
--- OUTSIDE RECORDS SUMMARY | 2023-11-27 18:50 | XMS_ITS | Encounter Summary ---
Author Organization [facility] Address [facility] [place] [address] Care Team Providers Care Client Services Administrator Name Role Phone Sarah Bailon APRN Primary Care Provider [phone] [phone] Reason for Visit * Reason Comments Vitreous [...] curtain Procedures consult, test & treat Teagan uSllivan MD [address] [place] [address] [facility] [address] [place] [id number] Referral ID Status Reason Start Date Expiration Date V isits Requested Visits Authorized [id number] 06/14/2016 06/14/2017 1 1 Encounter Details Date Type Department Care Team (Late st Contact Info) Description 06/16/2016 1:45 PM EDT Office Visit [place] [address] Dom Garrett MD [facility] [place] [address] Posterior vitreous detachment of left [...] left documented in this encounter Care Teams Client Services Administrator Relationship Specialty Start Date End Date Sarah Bailon APRN [address] [place] [address] PCP - General Family Medicine 06/16/16 documented as of this encounter
--- OUTSIDE RECORDS SUMMARY | 2023-11-27 18:50 | XMS_ITS | Encounter Summary ---
Author Organization [facility] Address [address] [place] [address] Care Team Providers Care Pizza Delivery Name Role Phone Sarah Bailon PAT Primary Care Provider +1 [phone] Encounter Details Date Type Department Care Team (Late st Contact Info) Description 07/19/2022 Lab Requisition [facility] Pathology & Laboratory Medicine - [address] [address] Outr Resulting Lab, Provider Social History Tobacco [...] ova and parasites seen. 07/20/2022 14:16 EDT [facility] Feces SPECIMEN FROM RECTUM / Unknown 07/18/2022 9:00 EDT 07/19/2022 17:13 EDT Narrative [facility] - 07/20/2022 14:16 EDT (If Cryptosporidium, Cyclospora, or Microsporidium are suspected, specific tests must be requested.) Single negative specimen does not rule out the possibility of a parasitic infection. Provider Outr Resulting Lab MICROBIOLOGY - GENERAL ORDERABLES [facility] [address] [place] [address] documented in this encounter Visit Diagnoses Not on filedocumented in this encounter Care Teams Pizza Delivery Relationship Specialty Start Date End Date Sarah Bailon APRN [address] [place] [address] PCP - General 07/13/17 documented as of this encounter
--- OUTSIDE RECORDS SUMMARY | 2023-11-27 18:50 | XMS_ITS | Encounter Summary ---
Author Organization [facility] Address [address] [place] [address] Care Team Providers Care Sand Hauler Name Role Phone Sarah Bailon LOG DECK TENDER Primary Care Provider +1 [phone] Encounter Details Date Type Department Care Team (Latest Contact Info) Description 03/04/2019 Lab Requisition [facility] Pathology & Laboratory Medicine - [facility] [address] [place] [address] Sarah Bailon, PAT [address] [address] Encounter for general adult medical examination without [...] Risk types, PCR Negative Negative 03/10/2019 14:42 [facility] Comment:No E6 or E7 mRNA is detected from HPV types 16,18,31,33,35,39,45,51,52,56,58,59,66, and 68 by warehouse person mediated amplification. Papanicolaou smear specimen (specimen) CERVIX UTERI STRUCTURE / Unknown 03/03/2019 10:15 EST 03/07/2019 14:53 EST Sarah Bailon APRN MICROBIOLOGY - GE NERAL ORDERABLES [facility] [address] [place] [address] * PAP TEST (03/03/2019 10:15 EST) Specimens A. Cervix and/or Endocervix, , ThinPrep Imaging System with Manual Evaluation 03/10/2019 14:42 [facility] Specimen Adequacy Satisfactory for Evaluation - assessment of transformation zone component not applicable ( e.g. atrophy, vaginal sample, hysterectomy) 03/10/2019 14:42 [facility] General Categorization Negative for intraepithelial lesion or malignancy 03/10/2019 14:42 [facility] Attestation . 03/10/2019 14:42 [facility] at 1442 Clinical History NONE 03/10/19 20 14:42 [facility] HPV The result for the Human Papillomavirus (HPV) Detection-High Risk Types is Negative. No E6 or E7 mRNA is detected from HPV types 16,18,31,33,35,39 ,45,51,52,56,58,5 9,66, and 68 by warehouse person mediated amplification.Franchesca ting was performed on specimen [id number] and was resulted on 03/10/2019 1431 EST by ANNAMARIE, LAB INSTRUMENT RESULTS IN 03/10/2019 14:42 [facility] Scanned Images 03/10/2019 14:42 [facility] Papanicolaou smear specimen (specimen) CERVIX UTERI STRUCTURE / Unknown 03/03/2019 10:15 EST 03/04/2019 15:38 EST Sarah Bailon APRN PATHOLOGY ORDERAB LES Performing Organization Address City/State/[facility] Co de Phone Number [facility] [address] [place] [address] documented in this encounter Visit Diagnoses Diagnosis Encounter for general adult medical examination without abnormal findings Unspecified general medical examination Encounter for screening for malignant neoplasm of cervix Screening for malignant neoplasm of the cervix Encounter for gynecological examination (general) (routine) without abnormal findings documented in this encounter Care Teams Sand Hauler Relationship Specialty Start Date End Date Sarah Bailon, PAT [address] [place] [address] PCP - General 07/13/17 documented as of this encounter
--- OUTSIDE RECORDS SUMMARY | 2023-11-27 18:50 | XMS_ITS | Clinical Summary ---
Author Organization [facility] Address [facility] [place] [address] Care Team Providers Care Fertilizer Processing Supervisor Name Role Phone UvaldoSis sullivanhryn Ammy STEWART Primary Care Provider [phone] [phone] Allergies Active Allergy Reactions Criticality Noted Date [...] 1955 Sigmoidoscopy 1955 Hepatitis C Screening 01/02/1972 Tetanus/Diphtheria/Pertussis Vaccines (1 - Tdap) 01/01 Breast Cancer Share Decision Needed 1994 Breast Cancer screening 1994 Zoster vaccine (1 of 2) 01/02/2004 Advance Directive 2009 Bone Density Scan 2019 Pneumoccocal Vaccine: 65+ (1 of 1 - PCV) 2019 Covid-19 Vaccine (1 - season) 2023 Influenza (Flu) vaccine (1 o f 1 - Influenza standard series) 10/28/2023 03/13/2013 Care Teams Fertilizer Processing Supervisor Relationship Specialty Start Date End Date Sarah Bailon APRN [address] [place], [place] [id number] PCP - General Family Medicine 06/16/16
--- OUTSIDE RECORDS SUMMARY | 2023-11-27 18:50 | XMS_ITS | Clinical Summary ---
Author Organization [facility] Address [address] [place] [address] Care Team Providers Care Braille Duplicating Machine Operator Name Role Phone Sarah Bailon PAT Primary Care Provider [phone] [phone] Encounters Date Type Department Care Team Description 09/22/2023 Lab Requisition [facility] Pathology & Laboratory Medicine - [facility] [address] [place] [address] Outr Resulting Lab, Provider from Last 3 Months Social History Tobacco Use Types Packs/Day Years [...] Screening 2019 COVID-19 Vaccine ( season) 2022 Procedures Procedure Name Priority Date/Time Associated Diagnosis Comments VARICELLA ZOSTER VIRUS MOLECULAR DETECTION, PCR Routine 09/21/2023 19:27 EDT HSV (HERPES SIMPLEX VIRUS) MOLECULAR DETECTION, PCR Routine 09/21/2023 19:27 EDT from Last 3 Months Results * VARICELLA ZOSTER VIRUS MOLECULAR DETECTION, PCR (09/21/2023 19:27 EDT) VARICELLA ZOSTER VIRUS MOLECULAR DETECTION, PCR Negative Negative, Invalid 09/23/2023 15:41 EDT [facility] Swab SPECIMEN FROM SKIN / Unknown 09/21/2023 19:27 EDT 09/22/2023 21:46 EDT Narrative [facility] - 09/23/2023 15:41 EDT This test was developed and its performance characteristics determined by [facility]. It has not been cleared or approved by the US Food and Drug Administration. FDA does not require this test to go through premarket FDA review. This test is used for clinical purposes. It should not be regarded as investigational or research. This laboratory is certified under the Clinical Laboratory Improvement Amendments (CLIA) as qualified to perform high complexity clinical laboratory testing. Provider Outr Resulting Lab MICROBIOLOGY - GENERAL ORDERABLES [facility] [address] [place] [address] * HSV (HERPES SIMPLEX VIRUS) MOLECULAR DETECTION, PCR (09/21/2023 19:27 EDT) Herpes Simplex Virus Molecular Detection 1, PCR Negative Negative 09/23/2023 15:40 EDT [facility] Herpes Simplex Virus Molecular Detection 2, PCR Negative Negative 09/23/2023 15:40 EDT [facility] Swab SPECIMEN FROM SKIN / Unknown 09/21/2023 19:27 EDT 09/22/2023 21:46 EDT Provider Outr Resulting Lab MICROBIOLOGY - GENERAL ORDERABLES [facility] [address] [place] [address] from Last 3 Months Care Teams Braille Duplicating Machine Operator Relationship Specialty Start Date End Date Sarah Bailon APRN [address] [place] [address] PCP - General 07/13/17
--- OUTSIDE RECORDS SUMMARY | 2023-11-27 18:50 | XMS_ITS | Encounter Summary ---
Author Organization [facility] Address [address] [place] [address] Care Team Providers Care Contestant Coordinator Name Role Phone Sarah Bailon PAT Primary Care Provider +1 [phone] Encounter Details Date Type Department Care Team (Late st Contact Info) Description 07/20/2022 Lab Requisition [facility] Pathology & Laboratory Medicine - [address] [address] Outr Resulting Lab, Provider Social History Tobacco [...] Salmonella PCR Negative Negative 07/21/2022 11:20 EDT [facility] Shigella/Enteroin vasive E. coli Negative Negative 07/21/2022 11:20 EDT [facility] HN LAB CAMPYLOBACTER PCR Negative Negative 07/21/2022 11:20 EDT [facility] Shiga Toxin PCR Negative Negative 11:20 EDT [facility] Feces SPECIMEN FROM RECTUM / Unknown 07/20/2022 10:00 EDT 07/20/2022 22:32 EDT Provider Outr Resulting Lab MICROBIOLOGY - GENERAL ORDERABLES [facility] [address] [place] [address] documented in this encounter Visit Diagnoses Not on filedocumented in this encounter Care Teams Contestant Coordinator Relationship Specialty Start Date End Date Sarah Bailon APRN [address] [place] [address] PCP - General 07/13/17 documented as of this encounter
--- OUTSIDE RECORDS SUMMARY | 2023-11-27 18:50 | XMS_ITS | Referral Summary ---
Author Organization [facility] Address [address] [place] [address] Care Team Providers Care Product Advisor Name Role Phone Sarah Bailon PAT Primary Care Provider [phone] [phone] Encounters Date Type Department Care Team Description 09/22/2023 Lab Requisition [facility] Pathology & Laboratory Medicine - [facility] [address] [place] [address] Outr Resulting Lab, Provider from Last 3 [...] file Plan of Treatment Not on file Procedures Procedure Name Priority Date/Time Associated Diagnosis Comments VARICELLA ZOSTER VIRUS MOLECULAR DETECTION, PCR Routine 09/21/2023 19:27 EDT HSV (HERPES SIMPLEX VIRUS) MOLECULAR DETECTION, PCR Routine 09/21/2023 19:27 EDT from Last 3 Months Results * VARICELLA ZOSTER VIRUS MOLECULAR DETECTION, PCR (09/21/2023 19:27 EDT) VARICELLA ZOSTER VIRUS MOLECULAR DETECTION, PCR Negative Negative, Invalid 09/23/2023 15:41 EDT [facility] Swab SPECIMEN FROM SKIN / Unknown 09/21/2023 19:27 EDT 09/22/2023 21:46 EDT Narrative [facility] - 09/23/2023 15:41 EDT This test was developed and its performance characteristics determined by [facility]. It has not been cleared or [...] Outr Resulting Lab MICROBIOLOGY - GENERAL ORDERABLES Performing Organization Address City/[facility]/ZIP Co de Phone Number [facility] [address] [place], [place] [address] * HSV (HERPES SIMPLEX VIRUS) MOLECULAR DETECTION, PCR (09/21/2023 19:27 EDT) Herpes Simplex Virus Molecular Detection 1, PCR Negative Negative 09/23/2023 15:40 EDT [facility] Herpes Simplex Virus Molecular Detection 2, PCR Negative Negative 09/23/2023 15:40 EDT [facility] Swab SPECIMEN FROM SKIN / Unknown 09/21/2023 19:27 EDT 09/22/2023 21:46 EDT Provider Outr Resulting Lab MICROBIOLOGY - GENERAL ORDERABLES Performing Organization Address [facility] Co de Phone Number [facility] [address] [place], [place] [address] from Last 3 Months Care Teams Product Advisor Relationship Specialty Start Date End Date Sarah Bailon APRN [address] [place] [address] PCP - General 07/13/17
--- OUTSIDE RECORDS SUMMARY | 2023-11-27 18:50 | XMS_ITS | Encounter Summary ---
Author Organization [facility] Address [address] [place] [address] Care Team Providers Care Scene And Lighting Design Lecturer Name Role Phone Unknown, Provider Primary Care Provider [phone] Encounter Details Date Type Department Care Team (Latest Contact Info) Description 07/06/2017 8:50 EDT - 07/06/2017 23:59 EDT Hospital Encounter [address] [address] Unknown, ProviderMD Discharge Disposition: Home or Self Care Social History Tobacco Use Types Packs/Day Years Used Date Smoking Tobacco: Never Assessed Sex and Gender Information Value Date Recorded Sex Assigned at Not on file Gender Identity Not on file Sexual Orientation Not on file documented as of this encounter Discharge Disposition Disposition Code Departure Means Destination Home or Self Assisted documented in this encounter Plan of Treatment Not on file documented as of this encounter Visit Diagnoses Not on filedocumented in this encounter Care Teams Scene And Lighting Design Lecturer Relationship Specialty Start Date End Date Unknown, Provider, PCP - General 02/06/14 07/12/17 documented as of this encounter
--- OUTSIDE RECORDS SUMMARY | 2023-11-27 18:50 | XMS_ITS | Encounter Summary ---
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 Keep in fridge. Goodfor 5 years) *Please remember to schedule your follow-up boosters, if indicated. Call us at [phone] to schedule an appointment for these vaccines. [...] months after your trip. Call us at [phone] to book this upon your return. Have [...] to last):[place] [facility]; [place], Bobby INDUSTRIAL MACHINERY MECHANIC and [place] INDUSTRIAL MACHINERY MECHANIC for total of 2 wks Departure date: 05/01/2013 Length of stay: 3 wks Purpose of travel: visit nephew in [facility]; biking/ trekking Urban or rural environment - both Accommodations; guesthouses, hostels, one overnight family stay while trekking; Inns - discussed use of mosquito net when in [facility] and [facility] INDUSTRIAL MACHINERY MECHANIC Medical History: Medical problems: healthy Immunosuppression: No [...] twice daily for three days sent to [facility] in [facility] . For severe or bloody [...] Altitude: (x) [place] [address] (x) Discussed altitude sickness and prevention. (x) Prescription for Acetazolamide was sent to [facility] in [facility] Follow-up Recommendations: A recommendation was made that the patient have a tst placed about 2 months after returning from this trip. The patient may either call the travel clinic or get this done through their primary career technical education teacher. Patient advised to call travel clinic if [...] evacuation insurance 2. 3. 1. 2. 3. Kyrgyz Encephalitis 1.will use good insect precautions when [...] status documented in this encounter Care Teams Custody Assistant Relationship Specialty Start Date End Date None None PCP - General 03/13/13 06/15/16 documented as of this encounter
--- OUTSIDE RECORDS SUMMARY | 2023-11-27 18:50 | XMS_ITS | Encounter Summary ---
Author Organization [facility] Address [address] [place] [address] Care Team Providers Care Wet Suit Gluer Name Role Phone Unknown, Provider Primary Care Provider [phone] Encounter Details Date Type Department Care Team ([facility] st Contact Info) Description 07/06/2017 Results Only [facility] [phone] Mary Jo Maldonado MD [address] [address] Social History Tobacco Use Types Packs/Day Years [...] when reading/interpret ing unformatted reports. Name: ? GERARDOLIZZAMEENA MCLAUGHLIN ? Accession #: ? [id number] ? : ? 1955 (Age: 62) ??F ? Collect Date: ? 07/06/2017 ? Location: ? [facility] ? Receive Date: ? 07/10/2017 ? Provider: MARY JO MALDONADO MD Copy to: PRICILLA PURCELL CUPROUS CHLORIDE HELPER ? Final Pathologic Diagnosis: SOFT TISSUE OF [...] (ASC) 07/11/2017 9:23 AM End of Report [facility] 07/06/2017 22:2 9 EDT 07/10/2017 22:29 EDT Mary Jo Maldonado MD PATHOLOGY ORDERABLES [facility] [address] [place] [address] documented in this encounter Visit Diagnoses Not on filedocumented in this encounter Care Teams Wet Suit Gluer Relationship Specialty Start Date End Date Unknown, Provider, PCP - General 02/06/14 07/12/17 documented as of this encounter
--- OUTSIDE RECORDS SUMMARY | 2023-11-27 18:50 | XMS_ITS | Encounter Summary ---
Author Organization [facility] Address [address] [place] [address] Care Team Providers Care Environmental Aide Name Role Phone Sarah Bailon PAT Primary Care Provider [phone] Encounter Details Date Type Department Care Team (Late st Contact Info) Description 09/22/2023 Lab Requisition [facility] Pathology & Laboratory Medicine - [address] [address] Outr Resulting Lab, Provider Social History Tobacco [...] MOLECULAR DETECTION, PCR Routine 09/21/2023 19:27 EDT documented in this encounter Results * VARICELLA ZOSTER VIRUS MOLECULAR DETECTION, PCR (09/21/2023 19:27 EDT) VARICELLA ZOSTER VIRUS MOLECULAR DETECTION, PCR Negative Negative, Invalid 09/23/2023 15:41 EDT [facility] Swab SPECIMEN FROM SKIN / Unknown 09/21/2023 19:27 EDT 09/22/2023 21:46 EDT Narrative [facility] - 09/23/2023 15:41 EDT This test was developed and its performance characteristics determined by [facility]. It has not been cleared or [...] MICROBIOLOGY - GENERAL ORDERABLES Performing Organization Address City/[facility]/ZIP Co de Phone Number [facility] [address] [place], [place] [id number] * HSV (HERPES SIMPLEX VIRUS) MOLECULAR DETECTION, PCR (09/21/2023 19:27 EDT) Herpes Simplex Virus Molecular Detection 1, PCR Negative Negative 09/23/2023 15:40 EDT [facility] Herpes Simplex Virus Molecular Detection 2, PCR Negative Negative 09/23/2023 15:40 EDT [facility] Swab SPECIMEN FROM SKIN / Unknown 09/21/2023 19:27 EDT 09/22/2023 21:46 EDT Provider Outr Resulting Lab MICROBIOLOGY - GENERAL ORDERABLES Performing Organization Address City/[facility] Co de Phone Number [facility] [address] [place], [place] [address] documented in this encounter Visit Diagnoses Not on filedocumented in this encounter Care Teams Environmental Aide Relationship Specialty Start Date End Date Sarah Bailon APRN [address] [place], [place] [address] PCP - General 07/13/17 documented as of this encounter
--- OUTSIDE RECORDS SUMMARY | 2023-11-27 18:50 | XMS_ITS | Encounter Summary ---
Author Organization [facility] Address [address] [place] [address] Care Team Providers Care Testing And Regulating Technician Name Role Phone Sarah Bailon PAT Primary Care Provider [phone] Encounter Details Date Type Department Care Team (Late st Contact Info) Description 08/03/2022 Lab Requisition [facility] Pathology & Laboratory Medicine - [address] [address] Arminda Dobbs MD [address] [place] [phone] Neoplasm of uncertain behavior of skin [...] management options, if applicable. 08/04/2022 10:05 EDT [facility] Final Diagnosis A. SKIN OF FOREARM, RIGHT, SHAVE BIOPSY: - Benign lichenoid keratosis 08/04/2022 10:05 [facility] Attestation By the signature below, the attending physician certifies that they have 1) personally conducted a gross and/or microscopic examination of the described specimen(s), and/or personally interpreted the results of laboratory testing of the described specimen(s), and 2) personally rendered or confirmed the above diagnosis. 08/04/2022 10:05 [facility] at 1005 Clinical History [place] raised bleeding lesion; clinical diagnosis code: D48.9 08/04/2022 10:05 [facility] Gross Description A. Received in [...] A1-A2. JOSSY JIMENEZ(ASCP) 08/03/2022 17:55 08/04/2022 10:05 [facility] Performing Lab [facility] 08/04/2022 10:05 [facility] Scanned Images 08/04/2022 10:05 [facility] Tissue TISSUE SPECIMEN FROM SKIN / Unknown 08/02/2022 15:45 EDT 08/03/2022 17:20 EDT Arminda Dobbs MD PATHOLOGY ORDERABLES [facility] [address] [place] [address] documented in this encounter Visit Diagnoses Diagnosis Neoplasm of uncertain behavior of skin documented in this encounter Care Teams Testing And Regulating Technician Relationship Specialty Start Date End Date Sarah Bailon APRN [address] [place] [address] PCP - General 5/18/18 documented as of this encounter
--- OUTSIDE RECORDS SUMMARY | 2023-11-27 18:50 | XMS_ITS | Encounter Summary ---
Author Organization [facility] [place]AMAR [place] [address] Care Team Providers Care Medical Malpractice Paralegal Name Role Phone Sarah Bailon APRN Primary Care Provider +1 [phone] Encounter Details Date Type Department Care Team (Late st Contact Info) Description 03/01/2022 Ancillary Procedure Radiology Library at [facility] [place] [place] [address] Sarah Bailon APRN [address] [place] [address] Social History Tobacco Use Types Packs/Day Years [...] Sarah Bailon APRN IMG FILM LIBRARY ORDERABLES [facility] Ej CT documented in this encounter Visit Diagnoses Not on filedocumented in this encounter Care Teams Medical Malpractice Paralegal Relationship Specialty Start Date End Date Sarah Bailon APRN [address] [place] [address] PCP - General Family Medicine 06/16/16 documented as of this encounter
--- OUTSIDE RECORDS SUMMARY | 2023-11-27 18:50 | XMS_ITS | Encounter Summary ---
Author Organization [facility] Address [facility] [place] [address] Care Team Providers Care Torch Operator Name Role Phone Sarah Bailon APRN Primary Care Provider +1 [phone] Reason for Visit * Reason Comments Skin Check * Consultation (Routine) - Closed Specialty Diagnoses / Procedures Referred By Cierra yeung Referred To Contact Dermatology Diagnoses SKIN LESIONS Sarah Bailon APRN [address] [place] [address] [facility] Dermatology [address] [place] [address] Referral ID Status Reason Start Date Expiration Date V isits Requested Visits Authorized [id number] Closed Consult, Test & Treat Connection Center PCP Updated and/or Approved 12/05/2018 12/05/2019 1 1 Encounter Details Date Type Department Care Team (Late Contact Info) Description 02/28/2019 11:30 AM EST Office Visit Dermatology at [facility] [address] [place] [phone] [facility] [address] [place] [address] Dermatofibroma; Awad angioma; Lentigines; Seborrheic [...] growths and wants evaluation. 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 Arminda Chowdhury MD Section of Dermatology [facility] documented in this encounter Plan of Treatment Not on file documented as of this encounter Visit Diagnoses Diagnosis Dermatofibroma Benign neoplasm of skin, site unspecified Awad angioma Nevus, non-neoplastic Lentigines Other dyschromia Seborrheic keratosis Other seborrheic keratosis Intradermal nevus Benign neoplasm of skin, site unspecified documented in this encounter Care Teams Torch Operator Relationship Specialty Start Date End Date Sarah Bailon, PAT [address] [place] [address] PCP - General Family Medicine 06/16/16 documented as of this encounter
[2023-11-27 22:24] LABS: ALT 21 U/L (14-59); AST 15 U/L (15-37); Albumin 3.6 g/dL (3.4-5.0); Alkaline Phosphatase 104 U/L (46-116); Anion Gap 6.1 mmol/L (3-11); BUN 14 mg/dL (7-18); Bilirubin, Total 0.26 mg/dL (0.2-1.0); CO2 29.9 mmol/L (21.0-32.0); CREATININE 0.8 mg/dL (0.55-1.02); Calcium 9.5 mg/dL (8.5-10.1); Calculated LDL 94 mg/dL (<100); Chloride 105 mmol/L (98-107); Cholesterol 198 mg/dL (<200); Estimated GFR 79.71 (mL/min/1.73m2); Glucose 96 mg/dL (74-106); HDL Cholesterol 74 mg/dL (40-60); Potassium 5.3 mmol/L (3.5-5.1); Sodium 141 mmol/L (136-145); Total Protein 6.8 g/dL (6.4-8.2); Triglyceride 153 mg/dL (<150); Vitamin D 25 Total 50.9 ng/mL (30-100)
== END 2023-11-27 18:42 | disposition home or self-care (01) ==
LOC: NCHCN 18:41
PROVIDERS: PCP Nurse Practitioner Family; Visit Provider Nurse Practitioner Family
DX: M81.0 Age-related osteoporosis without current pathological fracture (principal); I10 Essential (primary) hypertension
CPT/HCPCS: 80053; 80061; 82306

== ENCOUNTER 2023-12-07 00:30 | Outpatient (CLI) | payer MEDICARE, SELFPAY ==
--- OUTSIDE RECORDS SUMMARY | 2023-12-07 00:39 | XMS_ITS | Encounter Summary ---
Author Organization [facility] Address [address] [place] [address] Care Team Providers Care Deputy Sheriff Civil Division Name Role Phone Sarah Bailon PAT Primary Care Provider +1 [phone] Encounter Details Date Type Department Care Team (Late st Contact Info) Description 07/20/2022 Lab Requisition [facility] Pathology & Laboratory Medicine - [address] [address] Outr Resulting Lab, Provider Social History Tobacco [...] Salmonella PCR Negative Negative 07/21/2022 11:20 EDT [facility] Shigella/Enteroin vasive E. coli Negative Negative 07/21/2022 11:20 EDT [facility] HN LAB CAMPYLOBACTER PCR Negative Negative 07/21/2022 11:20 EDT [facility] Shiga Toxin PCR Negative Negative 11:20 EDT [facility] Feces SPECIMEN FROM RECTUM / Unknown 07/20/2022 10:00 EDT 07/20/2022 22:32 EDT Provider Outr Resulting Lab MICROBIOLOGY - GENERAL ORDERABLES [facility] [address] [place] [address] documented in this encounter Visit Diagnoses Not on filedocumented in this encounter Care Teams Deputy Sheriff Civil Division Relationship Specialty Start Date End Date Sarah Bailon APRN [address] [place] [address] PCP - General 07/13/17 documented as of this encounter
--- OUTSIDE RECORDS SUMMARY | 2023-12-07 00:39 | XMS_ITS | Encounter Summary ---
Author Organization Health system Address [address] [place] [address] Care Team Providers Care Timber Sizer Name Role Phone Sarah Bailon ORTHOPAEDIC SURGEON Primary Care Provider +1 [phone] Encounter Details Date Type Department Care Team (Latest Contact Info) Description 03/04/2019 Lab Requisition [facility] Pathology & Laboratory Medicine - [facility] [address] [place] [address] Sarha Bailon, PAT [address] [address] Encounter for general adult medical examination without [...] Risk types, PCR Negative Negative 03/10/2019 14:42 [facility] Comment:No E6 or E7 mRNA is detected from HPV types 16,18,31,33,35,39,45,51,52,56,58,59,66, and 68 by hand bookbinder mediated amplification. Papanicolaou smear specimen (specimen) CERVIX UTERI STRUCTURE / Unknown 03/03/2019 10:15 EST 03/07/2019 14:53 EST Sarah Bailon APRN MICROBIOLOGY - GE NERAL ORDERABLES [facility] [address] [place] [address] * PAP TEST (03/03/2019 10:15 EST) Specimens A. Cervix and/or Endocervix, , ThinPrep Imaging System with Manual Evaluation 03/10/2019 14:42 [facility] Specimen Adequacy Satisfactory for Evaluation - assessment of transformation zone component not applicable ( e.g. atrophy, vaginal sample, hysterectomy) 03/10/2019 14:42 [facility] General Categorization Negative for intraepithelial lesion or malignancy 03/10/2019 14:42 [facility] Attestation . 03/10/2019 14:42 [facility] at 1442 Clinical History NONE 03/10/19 20 14:42 [facility] HPV The result for the Human Papillomavirus (HPV) Detection-High Risk Types is Negative. No E6 or E7 mRNA is detected from HPV types 16,18,31,33,35,39 ,45,51,52,56,58,5 9,66, and 68 by hand bookbinder mediated amplification.Franchesca ting was performed on specimen [id number] and was resulted on 03/10/2019 1431 EST by ANNAMARIE, LAB INSTRUMENT RESULTS IN 03/10/2019 14:42 [facility] Scanned Images 03/10/2019 14:42 [facility] Papanicolaou smear specimen (specimen) CERVIX UTERI STRUCTURE / Unknown 03/03/2019 10:15 EST 03/04/2019 15:38 EST Sarah Bailon APRN PATHOLOGY ORDERAB LES Performing Organization Address City/State/[facility] Co de Phone Number [facility] [address] [place] [address] documented in this encounter Visit Diagnoses Diagnosis Encounter for general adult medical examination without abnormal findings Unspecified general medical examination Encounter for screening for malignant neoplasm of cervix Screening for malignant neoplasm of the cervix Encounter for gynecological examination (general) (routine) without abnormal findings documented in this encounter Care Teams Timber Sizer Relationship Specialty Start Date End Date Sarah Bailon, PAT [address] [place] [address] PCP - General 07/13/17 documented as of this encounter
--- OUTSIDE RECORDS SUMMARY | 2023-12-07 00:39 | XMS_ITS | Encounter Summary ---
Author Organization [facility] [place] [address] Care Team Providers Care Processing Tech Name Role Phone Sarah Bailon APRN Primary Care Provider +1 [phone] Encounter Details Date Type Department Care Team (Late st Contact Info) Description 03/01/2022 Ancillary Procedure Radiology Library at [facility] [place] [address] Sarah Bailon APRN [address] [place] [address] Social History Tobacco Use Types Packs/Day Years [...] Sarah Bailon APRN IMG FILM LIBRARY ORDERABLES [facility] Ej [place] documented in this encounter Visit Diagnoses Not on filedocumented in this encounter Care Teams Processing Tech Relationship Specialty Start Date End Date Sarah Bailon APRN [address] [place] [address] PCP - General Family Medicine 06/16/16 documented as of this encounter
--- OUTSIDE RECORDS SUMMARY | 2023-12-07 00:39 | XMS_ITS | Encounter Summary ---
Author Organization [facility] Address [address] [place] [address] Care Team Providers Care Woodworking Belt Sander Name Role Phone Sarah Bailon PAT Primary Care Provider +1 [phone] Encounter Details Date Type Department Care Team (Late st Contact Info) Description 08/03/2022 Lab Requisition [facility] Pathology & Laboratory Medicine - [address] [address] Arminda Dobbs MD [address] [place] [phone] Neoplasm of uncertain behavior of skin [...] management options, if applicable. 08/04/2022 10:05 EDT [facility] Final Diagnosis A. SKIN OF FOREARM, RIGHT, SHAVE BIOPSY: - Benign lichenoid keratosis 08/04/2022 10:05 [facility] Attestation By the signature below, the attending physician certifies that they have 1) personally conducted a gross and/or microscopic examination of the described specimen(s), and/or personally interpreted the results of laboratory testing of the described specimen(s), and 2) personally rendered or confirmed the above diagnosis. 08/04/2022 10:05 [facility] at 1005 Clinical History [employer] raised bleeding lesion; clinical diagnosis code: D48.9 08/04/2022 10:05 [facility] Gross Description A. Received [...] A1-A2. JOSSY JIMENEZ(ASCP) 08/03/2022 17:55 08/04/2022 10:05 [facility] Performing Lab [facility] 08/04/2022 10:05 [facility] Scanned Images 08/04/2022 10:05 [facility] Tissue TISSUE SPECIMEN FROM SKIN / Unknown 08/02/2022 15:45 EDT 08/03/2022 17:20 EDT Arminda Dobbs MD PATHOLOGY ORDERABLES [facility] [address] [place] [address] documented in this encounter Visit Diagnoses Diagnosis Neoplasm of uncertain behavior of skin documented in this encounter Care Teams Woodworking Belt Sander Relationship Specialty Start Date End Date Sarah Bailon APRN [address] [place] [address] PCP - General 5/18/18 documented as of this encounter
--- OUTSIDE RECORDS SUMMARY | 2023-12-07 00:39 | XMS_ITS | Encounter Summary ---
Author Organization [facility] Address [address] [place] [address] Care Team Providers Care Collar Feller Name Role Phone Unknown, Provider Primary Care Provider [phone] Encounter Details Date Type Department Care Team (Late st Contact Info) Description 02/05/2014 Results Only [facility] [phone] Pricilla Purcell, SOLAR SALES MANAGER [address] [facility] [address] [place] [id number] Social History Tobacco Use Types Packs/Day Years [...] ? AMEENA BURKS ? Accession #: ? [id number] ? : ? 1955 (Age: 59) ??F ?Collect Date: ? 02/05/2014 ? Location: ? [facility] ? Receive Date: ? 02/06/2014 ? Provider: PRICILLA PURCELL SOLAR SALES MANAGER Copy to: ? Final Report SPECIMEN ADEQUACY ? Satisfactory for Evaluation - assessment of transformation zone component not applicable ( e.g. atrophy, vaginal sample, hysterectomy) - scant squamous epithelial component - obscuring contamination, possibly lubricant GENERAL CATEGORIZATION ? Negative for Intraepithelial Lesion or Malignancy ?? Menstrual/Pregnanc y Status: ??Post Menopausal Specimen/Source: ??Pap Test, Source Not Provided, coUrbanize Imaging System with manual evaluation Document reviewed [...] types 16,18,31,33,35, 39,45,51,52,56,58, 59,66, and 68 by telex operator mediated amplification. Test not validated for [...] confirmed the above diagnosis. End of Report [facility] 02/05/2014 02/06/2014 Pricilla Purcell APRN PATHOLOGY ORDERAB LES Performing Organization Address City/State/[facility] Co de Phone Number [facility] [address] [place] [address] documented in this encounter Visit Diagnoses Not on filedocumented in this encounter Care Teams Collar Feller Relationship Specialty Start Date End Date Unknown, Provider, PCP - General 02/06/14 07/12/17 documented as of this encounter
--- OUTSIDE RECORDS SUMMARY | 2023-12-07 00:39 | XMS_ITS | Encounter Summary ---
Author Organization [facility] Address [address] [place] [address] Care Team Providers Care Brake Rider Name Role Phone Unknown, Provider Primary Care Provider [phone] Encounter Details Date Type Department Care Team ([facility] st Contact Info) Description 07/06/2017 Results Only [facility] [phone] Mary Jo Maldonado MD [address] [address] Social History Tobacco Use Types Packs/Day Years [...] ? VALENTENOAHLIZZAMEENA MCLAUGHLIN ? Accession #: ? [id number] ? : ? 1955 (Age: 62) ??F ? Collect Date: ? 07/06/2017 ? Location: ? [facility] ? Receive Date: ? 07/10/2017 ? Provider: MARY JO MALDONADO MD Copy to: PRICILLA PURCELL DEPUTY CHIEF COUNSEL ? Final Pathologic Diagnosis: SOFT TISSUE OF [...] (ASC) 07/11/2017 9:23 AM End of Report [facility] 07/06/2017 22:2 9 EDT 07/10/2017 22:29 EDT Mary Jo Maldonado MD PATHOLOGY ORDERABLES [facility] [address] [place] [address] documented in this encounter Visit Diagnoses Not on filedocumented in this encounter Care Teams Brake Rider Relationship Specialty Start Date End Date Unknown, Provider, PCP - General 02/06/14 07/12/17 documented as of this encounter
--- OUTSIDE RECORDS SUMMARY | 2023-12-07 00:39 | XMS_ITS | Encounter Summary ---
Author Organization [facility] Address [address] [place] [address] Care Team Providers Care Investigative Research Specialist Name Role Phone Unknown, Provider Primary Care Provider [phone] Encounter Details Date Type Department Care Team (Latest Contact Info) Description 07/06/2017 8:50 EDT - 07/06/2017 23:59 EDT Hospital Encounter [address] [address] Unknown, ProviderMD Discharge Disposition: Home or Self Care Social History Tobacco Use Types Packs/Day Years Used Date Smoking Tobacco: Never Assessed Sex and Gender Information Value Date Recorded Sex Assigned at Not on file Gender Identity Not on file Sexual Orientation Not on file documented as of this encounter Discharge Disposition Disposition Code Departure Means Destination Home or Self Custodial documented in this encounter Plan of Treatment Not on file documented as of this encounter Visit Diagnoses Not on filedocumented in this encounter Care Teams Investigative Research Specialist Relationship Specialty Start Date End Date Unknown, Provider, PCP - General 02/06/14 07/12/17 documented as of this encounter
--- OUTSIDE RECORDS SUMMARY | 2023-12-07 00:39 | XMS_ITS | Clinical Summary ---
Author Organization [facility] Address [address] [place] [address] Care Team Providers Care Net Repairer Name Role Phone Sarah Bailon PAT Primary Care Provider [phone] [phone] Encounters Date Type Department Care Team Description 09/22/2023 Lab Requisition [facility] Pathology & Laboratory Medicine - [facility] [address] [place] [address] Outr Resulting Lab, Provider from Last 3 [...] PCR Negative Negative, Invalid 09/23/2023 15:41 EDT [facility] Swab SPECIMEN FROM SKIN / Unknown 09/21/2023 19:27 EDT 09/22/2023 21:46 EDT Narrative [facility] - 09/23/2023 15:41 EDT This test was developed and its performance characteristics determined by [facility]. It has not been cleared or approved [...] Outr Resulting Lab MICROBIOLOGY - GENERAL ORDERABLES [facility] [address] [place] [address] * HSV (HERPES SIMPLEX VIRUS) MOLECULAR DETECTION, PCR (09/21/2023 19:27 EDT) Herpes Simplex Virus Molecular Detection 1, PCR Negative Negative 09/23/2023 15:40 EDT [facility] Herpes Simplex Virus Molecular Detection 2, PCR Negative Negative 09/23/2023 15:40 EDT [facility] Swab SPECIMEN FROM SKIN / Unknown 09/21/2023 19:27 EDT 09/22/2023 21:46 EDT Provider Outr Resulting Lab MICROBIOLOGY - GENERAL ORDERABLES [facility] [address] [place] [address] from Last 3 Months Care Teams Net Repairer Relationship Specialty Start Date End Date Sarah Bailon APRN [address] [place] [address] PCP - General 07/13/17
--- OUTSIDE RECORDS SUMMARY | 2023-12-07 00:39 | XMS_ITS | Referral Summary ---
Author Organization [facility] Address [address] [place] [address] Care Team Providers Care Paint Technician Name Role Phone Sarah Bailon PAT Primary Care Provider [phone] [phone] Encounters Date Type Department Care Team Description 09/22/2023 Lab Requisition [facility] Pathology & Laboratory Medicine - [facility] [address] [place] [address] Outr Resulting Lab, Provider from Last 3 [...] PCR Negative Negative, Invalid 09/23/2023 15:41 EDT [facility] Swab SPECIMEN FROM SKIN / Unknown 09/21/2023 19:27 EDT 09/22/2023 21:46 EDT Narrative [facility] - 09/23/2023 15:41 EDT This test was developed and its performance characteristics determined by [facility]. It has not been cleared or [...] MICROBIOLOGY - GENERAL ORDERABLES Performing Organization Address City/[facility]/ZIP Co de Phone Number [facility] [address] [place], [place] [address] * HSV (HERPES SIMPLEX VIRUS) MOLECULAR DETECTION, PCR (09/21/2023 19:27 EDT) Herpes Simplex Virus Molecular Detection 1, PCR Negative Negative 09/23/2023 15:40 EDT [facility] Herpes Simplex Virus Molecular Detection 2, PCR Negative Negative 09/23/2023 15:40 EDT [facility] Swab SPECIMEN FROM SKIN / Unknown 09/21/2023 19:27 EDT 09/22/2023 21:46 EDT Provider Outr Resulting Lab MICROBIOLOGY - GENERAL ORDERABLES Performing Organization Address [facility] Co de Phone Number [facility] [address] [place], [place] [address] from Last 3 Months Care Teams Paint Technician Relationship Specialty Start Date End Date Sarah Bailon APRN [address] [place] [address] PCP - General 07/13/17
--- OUTSIDE RECORDS SUMMARY | 2023-12-07 00:39 | XMS_ITS | Encounter Summary ---
Author Organization [facility] Address [address] [place] [address] Care Team Providers Care High School Assistant Principal Name Role Phone Sarah Bailon PAT Primary Care Provider [phone] [phone] Encounter Details Date Type Department Care Team (Late st Contact Info) Description 07/19/2022 Lab Requisition [facility] Pathology & Laboratory Medicine - [address] [address] Outr Resulting Lab, Provider Social History Tobacco [...] ova and parasites seen. 07/20/2022 14:16 EDT [facility] Feces SPECIMEN FROM RECTUM / Unknown 07/18/2022 9:00 EDT 07/19/2022 17:13 EDT Narrative [facility] - 07/20/2022 14:16 EDT (If Cryptosporidium, Cyclospora, or Microsporidium are suspected, specific tests must be requested.) Single negative specimen does not rule out the possibility of a parasitic infection. Provider Outr Resulting Lab MICROBIOLOGY - GENERAL ORDERABLES [facility] [address] [place] [address] documented in this encounter Visit Diagnoses Not on filedocumented in this encounter Care Teams High School Assistant Principal Relationship Specialty Start Date End Date Sarah Bailon APRN [address] [place] [address] PCP - General 07/13/17 documented as of this encounter
--- OUTSIDE RECORDS SUMMARY | 2023-12-07 00:39 | XMS_ITS | Encounter Summary ---
Author Organization [facility] Address [facility] [place] [address] Care Team Providers Care Environmental Attorney Name Role Phone Sarah Bailon APRN Primary Care Provider [phone] [phone] Reason for Visit * Reason Comments Skin Check * Consultation (Routine) - Closed Specialty Diagnoses / Procedures Referred By Cierra yeung Referred To Contact Dermatology Diagnoses SKIN LESIONS Sarah Bailon APRN [address] [place] [address] [facility] Dermatology [address] [place] [address] Referral ID Status Reason Start Date Expiration Date V isits Requested Visits Authorized [id number] Closed Consult, Test & Treat Connection Center PCP Updated and/or Approved 12/05/2018 12/05/2019 1 1 Encounter Details Date Type Department Care Team (Late Contact Info) Description 02/28/2019 11:30 AM EST Office Visit Dermatology at [facility] [address] [place] [phone] Arminda Chowdhury MD [facility] DR SHANNAN [place] [address] Dermatofibroma; Awad angioma; Lentigines; Seborrheic [...] growths and wants evaluation. 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 Arminda Chowdhury MD Section of Dermatology [facility] documented in this encounter Plan of Treatment Not on file documented as of this encounter Visit Diagnoses Diagnosis Dermatofibroma Benign neoplasm of skin, site unspecified Awad angioma Nevus, non-neoplastic Lentigines Other dyschromia Seborrheic keratosis Other seborrheic keratosis Intradermal nevus Benign neoplasm of skin, site unspecified documented in this encounter Care Teams Environmental Attorney Relationship Specialty Start Date End Date Sarah Bailon, PAT [address] [place] [address] PCP - General Family Medicine 06/16/16 documented as of this encounter
--- OUTSIDE RECORDS SUMMARY | 2023-12-07 00:39 | XMS_ITS | Encounter Summary ---
Author Organization [facility] Address [address] [place] [address] Care Team Providers Care Police Surgeon Name Role Phone Sarah Bailon PAT Primary Care Provider [phone] Encounter Details Date Type Department Care Team (Late st Contact Info) Description 09/22/2023 Lab Requisition [facility] Pathology & Laboratory Medicine - [address] [address] Outr Resulting Lab, Provider Social History Tobacco [...] PCR Negative Negative, Invalid 09/23/2023 15:41 EDT [facility] Swab SPECIMEN FROM SKIN / Unknown 09/21/2023 19:27 EDT 09/22/2023 21:46 EDT Narrative [facility] - 09/23/2023 15:41 [...] MICROBIOLOGY - GENERAL ORDERABLES Performing Organization Address City/[facility]/ZIP Co de Phone Number [facility] [address] [place], [place] [phone] * HSV (HERPES SIMPLEX VIRUS) MOLECULAR DETECTION, PCR (09/21/2023 19:27 EDT) Herpes Simplex Virus Molecular Detection 1, PCR Negative Negative 09/23/2023 15:40 EDT [facility] Herpes Simplex Virus Molecular Detection 2, PCR Negative Negative 09/23/2023 15:40 EDT [facility] Swab SPECIMEN FROM SKIN / Unknown 09/21/2023 19:27 EDT 09/22/2023 21:46 EDT Provider Outr Resulting Lab MICROBIOLOGY - GENERAL ORDERABLES Performing Organization Address City/[facility] Co de Phone Number [facility] [address] [place], [place] [address] documented in this encounter Visit Diagnoses Not on filedocumented in this encounter Care Teams Police Surgeon Relationship Specialty Start Date End Date Sarah Bailon APRN [address] [place], [place] [address] PCP - General 07/13/17 documented as of this encounter
--- OUTSIDE RECORDS SUMMARY | 2023-12-07 00:39 | XMS_ITS | Clinical Summary ---
Author Organization [facility] Address [facility] [place] [address] Care Team Providers Care Backup Operator Name Role Phone UvaldoSis sullivanhryn Ammy STEWART Primary Care Provider [phone] Allergies Active Allergy Reactions Criticality Noted Date [...] Influenza standard series) 10/28/2023 03/13/2013 Care Teams Backup Operator Relationship Specialty Start Date End Date Sarah Bailon APRN [address] [place], [place] [phone] PCP - General Family Medicine 06/16/16
--- OUTSIDE RECORDS SUMMARY | 2023-12-07 00:39 | XMS_ITS | Encounter Summary ---
Author Organization 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 Keep in fridge. Goodfor 5 years) *Please remember to schedule your follow-up boosters, if indicated. Call us at [phone] to schedule an appointment for these vaccines. [...] months after your trip. Call us at [phone] to book this upon your return. Have [...] to last):[place] for 1-2 days; [facility]; [place], [place] GAS MASK INSPECTOR and Royal Kendrick GAS MASK INSPECTOR for total of 2 wks Departure date: 05/01/2013 Length of stay: 3 wks Purpose of travel: visit nephew in [facility]; biking/ trekking Urban or rural environment - both Accommodations; guesthouses, hostels, one overnight family stay while trekking; Inns - discussed use of mosquito net when in [facility] and [facility] GAS MASK INSPECTOR Medical History: Medical problems: healthy Immunosuppression: No [...] twice daily for three days sent to [facility] in [facility] . For severe [...] Altitude: (x) [place] [address] (x) Discussed altitude sickness and prevention. (x) Prescription for Acetazolamide was sent to [facility] in [facility] Follow-up Recommendations: A recommendation was made that the patient have a tst placed about 2 months after returning from this trip. The patient may either call the travel clinic or get this done through their primary health care marketing specialist. Patient advised to call travel clinic if [...] evacuation insurance 2. 3. 1. 2. 3. Grenadian Encephalitis 1.will use good insect precautions when [...] status documented in this encounter Care Teams Rn Progressive Care Unit Relationship Specialty Start Date End Date None None PCP - General 03/13/13 06/15/16 documented as of this encounter
--- OUTSIDE RECORDS SUMMARY | 2023-12-07 00:39 | XMS_ITS | Encounter Summary ---
Author Organization [facility] Address [facility] [place] [address] Care Team Providers Care Union Organiser Name Role Phone Sarah Bailon APRN Primary Care Provider [phone] Reason for Visit * Reason Comments Vitreous [...] test & treat Teagan Sullivan MD [address] [place] [address] [facility] [address] [place] [phone] Referral ID Status Reason Start Date Expiration Date V isits Requested Visits Authorized [id number] 06/14/2016 06/14/2017 1 1 Encounter Details Date Type Department Care Team (Late st Contact Info) Description 06/16/2016 1:45 PM EDT [place] [address] Dom Garrett MD [facility] [place] [address] Posterior vitreous detachment of left [...] left documented in this encounter Care Teams Union Organiser Relationship Specialty Start Date End Date Sarah Bailon APRN [address] [place] [address] PCP - General Family Medicine 06/16/16 documented as of this encounter
--- NOTE | 2023-12-07 10:43 | DI.MAMMO_ITS ---
Exam(s) MAMMO SCREENING EXAM: MAMMO SCREENING CLINICAL HISTORY: SCREENING MAMMO Z12.31. TECHNIQUE: Bilateral full field digital CC and MLO mammographic images were obtained with 3D tomosyn thesis and utilizing computer aided detection (CAD). COMPARISON: Prior mammograms were reviewed. Prior ultrasound reviewed FINDINGS: Fibroglandular tissue pattern again noted be moderately dense. No CAD designations. There are no new spiculated masses nor malignant appearing microcalcification groups. There is no significant architectural distortion nor skin thickening-retraction. IMPRESSION: No radiographic evidence of malignancy. BI-RADS Category 1 - Negative Breast Density - Category C - Heterogeneously dense Breast density Category C or D implies that the patient has dense breast tissue. Dense breast tissue can make it harder to find cancer on a mammogram. Dense breast tissue is also associated with an incr eased risk of breast cancer. This information about the result of the mammogram report was provided to the patient to raise their awareness. Use this report when you speak with the patient about their risks for breast cancer, which includes their family history. At that time, you may recommend additional screening tests (Ultrasoun d or MRI) as these tests may add significant information. A negative radiographic report should not delay biopsy if a dominant or clinically suspicious mass is present. Up to ten percent of cancers are not identified on mammography. A negative report may reinforce clinical impression. Adenosis and dense breasts may obscure an underlying neoplasm. False positive reports average 6 to 10%. Patient will receive a letter notifying them of these results.
== END 2023-12-07 00:50 ==
LOC: DI 00:30
PROVIDERS: PCP Nurse Practitioner Family; Visit Provider Nurse Practitioner Family
DX: Z12.31 Encounter for screening mammogram for malignant neoplasm of breast (principal)
CPT/HCPCS: 77063; 77067

== ENCOUNTER → 2023-12-10 09:01 | Outpatient (BNVA) | payer MEDICARE, SELFPAY | PROVIDERS: PCP Nurse Practitioner Family; Referring Provider Nurse Practitioner Family; Visit Provider Student in an Organized Health Care Education/Training Program | DX: M19.041 Primary osteoarthritis, right hand (principal) | CPT/HCPCS: 20610; J1010 ==

== ENCOUNTER 2024-12-12 04:54 | Outpatient (CLI) | payer MEDICARE, SELFPAY ==
--- NOTE | 2024-12-12 09:12 | DI.MAMMO_ITS ---
Exam(s) MAMMO SCREENING EXAM: MAMMO SCREENING CLINICAL HISTORY: SCREENING, Z12.31 TECHNIQUE: Mammograms were interpreted according to the usual protocol including computer analysis with CAD system, tomosynthesis and C-view imaging. COMPARISON: 2019 through 2023 FINDINGS: The breasts are composed of heterogeneously dense fibroglandular densities, Breast Density category C. No suspicious masses or suspicious microcalcifications are seen. No skin thickening or abnormal axillary lymph nodes are seen. There has been no significant change from prior exams. IMPRESSION: BI-RADS Category 1, Negative mammogram. Yearly screening mammography is recommended. Breast Density: Category C - The breasts are heterogeneously dense, which may obscure small masses. Breast density Category C or D implies that the patient has dense breast tissue. Dense breast tissue can make it harder to find cancer on a mammogram. Dense breast tissue is also associated with an increased risk of breast cancer. This information about the result of the mammogram report was provided to the patient to raise their awareness. Use this report when you speak with the patient about their risks for breast cancer, which includes their family history. At that time, you may recommend additional screening tests (Ultrasound or MRI) as these tests may add significant information. A negative radiographic report should not delay biopsy if a dominant or clinically suspicious mass is present. Up to ten percent of cancers are not identified on mammography. A negative report may reinforce clinical impression. Adenosis and dense breasts may obscure an underlying neoplasm. False positive reports average 6 to 10%.
== END 2024-12-12 05:14 ==
PROVIDERS: PCP Nurse Practitioner Family; Visit Provider Nurse Practitioner Family
DX: Z12.31 Encounter for screening mammogram for malignant neoplasm of breast (principal); R92.323 Mammographic fibroglandular density, bilateral breasts; R92.333 Mammographic heterogeneous density, bilateral breasts
CPT/HCPCS: 77063; 77067